=== PATIENT | female | born 1960 | race Caucasian/White ===

== ENCOUNTER 2019-04-21 17:15 | Emergency (ER) | payer BC ==
[2019-04-21 17:19] VITALS: RESP 18; TEMP 98.4
[2019-04-21] MEDS ORDERED: KETOROLAC 30 MG/ML 1 ML VIAL IVP STA (17:37)
[2019-04-21] MEDS ORDERED: SODIUM CHLORIDE 0.9% 1,000 ML IV STA (17:37)
[2019-04-21] MEDS ORDERED: MORPHINE SULFATE 4 MG/ML SYRINGE IVP STA (17:39)
[2019-04-21] MEDS ORDERED: ONDANSETRON 4 MG/2 ML VIAL IVP STA (18:03)
[2019-04-21 18:12] LABS: Basophils % (A) 0 %; Eosinophils # (A) 0.2 k/uL (0-0.7); Eosinophils % (A) 4 %; HGB 14.2 gm/dL (11.4-16.0); Lymphocytes # (A) 2.2 k/uL (1.0-4.8); Lymphocytes % (A) 35 %; MCH 31.5 pg (25.0-35.0); MCHC 32.2 g/dL (31.0-37.0); Mean Platelet Volume 7.5; Monocytes # (A) 0.3 k/uL (0-1.0); Monocytes % (A) 4 %; Neutrophils # (A) 3.5 k/uL (1.3-7.7); Neutrophils % (A) 55 %; Platelet Count 220 k/uL (150-450); RBC 4.49 m/uL (3.80-5.40); RDW 12.7 % (11.5-15.5); WBC 6.4 k/uL (3.8-10.6)
[2019-04-21 18:15] LABS: Appearance,Urine Clear (Clear); Bilirubin,Urine Negative (Negative); Blood,Urine Small (Negative); Color,Urine Light Yellow; Glucose,Urine (UA) Negative (Negative); Ketones,Urine Negative (Negative); Leukocyte Esterase,Urine Negative (Negative); Mucus,Urine Rare /hpf; Nitrite,Urine Negative (Negative); Protein,Urine Negative (Negative); RBC,Urine 3 /hpf (0-5); Specific Gravity,Urine 1.008 (1.001-1.035); Squamous Epithelial Cell,Urine 2 /hpf (0-4); Urobilinogen,Urine <2.0 mg/dL (<2.0); WBC,Urine <1 /hpf (0-5)
[2019-04-21 18:22] LABS: Albumin 4.3 g/dL (3.5-5.0); Calcium 9.2 mg/dL (8.4-10.2); Potassium 4.2 mmol/L (3.5-5.1); Total Bilirubin 0.4 mg/dL (0.2-1.3); Total Protein 6.7 g/dL (6.3-8.2)
[2019-04-21 18:28] LABS: Partial Thromboplastin Time 23.3 sec (22.0-30.0); Prothrombin Time 9.9 sec (9.0-12.0)
--- NOTE | 2019-04-21 18:51 | US ---
EXAMINATION TYPE: US gallbladder DATE OF EXAM: 04/21/2019 COMPARISON: NM, CT CLINICAL HISTORY: pain. EC patient with sever RUQ pain > 1 week; prior history of renal stones with l ithotripsy EXAM MEASUREMENTS: Liver Length: 15.0 cm Gallbladder Wall: 0.2 cm CBD: 0.2 cm Right Kidney: 9.4 x 5.4 x3.9 cm Pancreas: wnl Liver: wnl Gallbladder: no stones or sludge is seen; wall is wnl and patient stated ate beef and rice, nuts/cho colate with granola bar at 1300 today. Evidence for sonographic Arrington's sign: tender RUQ and epigastric area CBD: wnl Right Kidney: No hydronephrosis, hyperechoic parallel lines noted mid pole suggests calcified vessel mcpherson. IMPRESSION: No gallstones or dilated ducts. No free fluid.
--- NOTE | 2019-04-21 19:14 | ED ---
Abdominal Pain HPI - General Chief Complaint: Abdominal Pain Stated Complaint: gallbladder Time Seen by Provider: 04/21/19 17:22 Source: patient Mode of arrival: ambulatory Limitations: no limitations - History of Present Illness Initial Comments: Patient is a 59-year-old female presenting to the emergency department with complaints of right upper quadrant pain that has been increasing over the past week and a half. Patient states she had her gallbladder exam and with testing approximately 7-8 years ago and at that time her doctor wanted her to have her gallbladder removed. However she refused at that time. She has been asymptomatic since then. Patient states last week and a half she's noticed increased pain in the right upper quadrant along with some mild nausea. She states the pain has steadily been increasing and she can no longer take it. She denies fever, chills, vomiting, diarrhea. She does admit to hysterectomy, no other abdominal surgeries. She denies chest pain, shortness of breath. She has no other complaints at this time. Upon arrival to the ER her vital signs are stable. - Related Data Previous Rx's Medication Instructions Recorded Ketorolac [Toradol] 10 mg PO Q8HR #10 tab 04/21/19 Allergies Allergy/AdvReac Type Severity Reaction Status Date / Time bee pollen Allergy Anaphylaxis Verified 04/21/19 17:19 bee venom protein (honey bee) Allergy Anaphylaxis Verified 04/21/19 17:19 Review of Systems ROS Statement: Those systems with pertinent positive or pertinent negative responses have been documented in the HPI. ROS Other: All systems not noted in ROS Statement are negative. Past Medical History Past Medical History: Rheumatoid Arthritis (RA) History of Any Multi-Drug Resistant Organisms: None Reported Past Surgical History: Hysterectomy, Orthopedic Surgery Past Psychological History: No Psychological Hx Reported Smoking Status: Never smoker Past Alcohol Use History: Occasional Past Drug Use History: None Reported General Exam - General Exam Comments Initial Comments: GENERAL: Well-appearing, well-nourished and in no acute distress, but appears unco mfortable, holding her right side. HEAD: Atraumatic, normocephalic. EYES: Pupils equal round and reactive to light, extraocular movements intact, sclera anicteric, conjunctiva are normal. ENT: TMs normal, nares patent, oropharynx clear without exudates. Moist mucous membranes. NECK: Normal range of motion, supple without lymphadenopathy or JVD. LUNGS: Breath sounds clear to auscultation bilaterally and equal. No wheezes rales or rhonchi. HEART: Regular rate and rhythm without murmurs, rubs or gallops. ABDOMEN: Severe tenderness to palpation in the right upper quadrant and epigastric area. Soft, normoactive bowel sounds. No rebound. No masses appreciated. EXTREMITIES: Normal range of motion, no pitting or edema. No clubbing or cyanosis. NEUROLOGICAL: Normal speech, normal gait. PSYCH: Normal mood, normal affect. SKIN: Warm, Dry, normal turgor, no rashes or lesions noted. Limitations: no limitations Course Vital Signs 04/21/19 04/21/19 17:16 19:24 Temperature 98.4 F Pulse Rate 86 85 Respiratory 18 18 Rate Blood Pressure 156/91 160/87 O2 Sat by Pulse 98 98 Oximetry Medical Decision Making - Medical Decision Making Patient is 59-year-old female presenting with upper quadrant pain has been increasing over the past week and a half. Vitals are stable. Exam reveals severe right upper quadrant and epigastric tenderness. Lab work shows no acute abnormalities. Urine is normal, no signs of infection. Ultrasound shows no signs of a gallstone or dilated ducts. No free fluid. No signs of a right- sided kidney stone. Patient was given fluids as well as Toradol and reports improvement in her symptoms. I discussed with patient that even over workup is normal today, her symptoms are consistent with biliary colic. Patient will be given referral to surgery. Patient will also be given a small dose of Toradol for future colic events. She is in agreement with this plan of care. She is stable for discharge at this time. Return parameters were discussed with the patient she verbalized understanding. Case discussed with Dr. Abbott. - Lab Data Result diagrams: 04/21/19 18:01 04/21/19 18:01 Lab Results 04/21/19 04/21/19 04/21/19 Range/Units 18: 18: 18: WBC 6.4 (3.8-10.6) k/uL RBC 4.49 (3.80-5.40) m/uL Hgb 14.2 (11.4-16.0) gm/dL Hct 44.0 (34.0-46.0) % MCV 98.0 (80.0-100.0) fL MCH 31.5 (25.0-35.0) pg MCHC 32.2 (31.0-37.0) g/dL RDW 12.7 (11.5-15.5) % Plt Count 220 (150-450) k/uL Neutrophils % 55 % Lymphocytes % 35 % Monocytes % 4 % Eosinophils % 4 % Basophils % 0 % Neutrophils # 3.5 (1.3-7.7) k/uL Lymphocytes # 2.2 (1.0-4.8) k/uL Monocytes # 0.3 (0-1.0) k/uL Eosinophils # 0.2 (0-0.7) k/uL Basophils # 0.0 (0-0.2) k/uL PT (9.0-12.0) sec INR (<1.2) APTT (22.0-30.0) sec Sodium 139 (137-145) mmol/L Potassium 4.2 (3.5-5.1) mmol/L Chloride 109 H (98-107) mmol/L Carbon Dioxide 25 (22-30) mmol/L Anion Gap 5 mmol/L BUN 10 (7-17) mg/dL Creatinine 1.00 (0.52-1.04) mg/dL Est GFR (CKD-EPI)AfAm 71 (>60 ml/min/1.73 sqM) Est GFR (CKD-EPI)NonAf 61 (>60 ml/min/1.73 sqM) Glucose 93 (74-99) mg/dL Plasma Lactic Acid Louie 0.6 L (0.7-2.0) mmol/L Calcium 9.2 (8.4-10.2) mg/dL Total Bilirubin 0.4 (0.2-1.3) mg/dL AST 25 (14-36) U/L ALT 19 (4-34) U/L Alkaline Phosphatase 78 (38-126) U/L Total Protein 6.7 (6.3-8.2) g/dL Albumin 4.3 (3.5-5.0) g/dL Amylase 70 (30-110) U/L Lipase 139 (23-300) U/L Urine Color Urine Appearance (Clear) Urine pH (5.0-8.0) Ur Specific [place]rence (1.001-1.035) Urine Protein (Negative) Urine Glucose (UA) (Negative) Urine Ketones (Negative) Urine Blood (Negative) Urine Nitrite (Negative) Urine Bilirubin (Negative) Urine Urobilinogen (<2.0) mg/dL Ur Leukocyte Esterase (Negative) Urine RBC (0-5) /hpf Urine WBC (0-5) /hpf Ur Squamous Epith Cells (0-4) /hpf Urine Mucus (None) /hpf 04/21/19 04/21/19 Range/Units 18:01 18:01 WBC (3.8-10.6) k/uL RBC (3.80-5.40) m/uL Hgb (11.4-16.0) gm/dL Hct (34.0-46.0) % MCV (80.0-100.0) fL MCH (25.0-35.0) pg MCHC (31.0-37.0) g/dL RDW (11.5-15.5) % Plt Count (150-450) k/uL Neutrophils % % Lymphocytes % % Monocytes % % Eosinophils % % Basophils % % Neutrophils # (1.3-7.7) k/uL Lymphocytes # (1.0-4.8) k/uL Monocytes # (0-1.0) k/uL Eosinophils # (0-0.7) k/uL Basophils # (0-0.2) k/uL PT 9.9 (9.0-12.0) sec INR 1.0 (<1.2) APTT 23.3 (22.0-30.0) sec Sodium (137-145) mmol/L Potassium (3.5-5.1) mmol/L Chloride (98-107) mmol/L Carbon Dioxide (22-30) mmol/L Anion Gap mmol/L BUN (7-17) mg/dL Creatinine (0.52-1.04) mg/dL Est GFR (CKD-EPI)AfAm (>60 ml/min/1.73 sqM) Est GFR (CKD-EPI)NonAf (>60 ml/min/1.73 sqM) Glucose (74-99) mg/dL Plasma Lactic Acid Louie (0.7-2.0) mmol/L Calcium (8.4-10.2) mg/dL Total Bilirubin (0.2-1.3) mg/dL AST (14-36) U/L ALT (4-34) U/L Alkaline Phosphatase (38-126) U/L Total Protein (6.3-8.2) g/dL Albumin (3.5-5.0) g/dL Amylase (30-110) U/L Lipase (23-300) U/L Urine Color Light Yellow Urine Appearance Clear (Clear) Urine pH 7.0 (5.0-8.0) Ur Specific [place] 1.008 (1.001-1.035) Urine Protein Negative (Negative) Urine Glucose (UA) Negative (Negative) Urine Ketones Negative (Negative) Urine Blood Small H (Negative) Urine Nitrite Negative (Negative) Urine Bilirubin Negative (Negative) Urine Urobilinogen <2.0 (<2.0) mg/dL Ur Leukocyte Esterase Negative (Negative) Urine RBC 3 (0-5) /hpf Urine WBC <1 (0-5) /hpf Ur Squamous Epith Cells 2 (0-4) /hpf Urine Mucus Rare H (None) /hpf Disposition Clinical Impression: Biliary colic, Right upper quadrant pain Disposition: HOME SELF-CARE Condition: Stable Instructions (If sedation given, give patient instructions): Biliary Colic (ED) Additional Instructions: Please return to the Emergency Department if symptoms worsen or any other concerns. Be cautious of the foods that trigger gallbladder attacks. Follow-up with surgeon as discussed. Prescriptions: Ketorolac [Toradol] 10 mg PO Q8HR #10 tab Is patient prescribed a controlled substance at d/c from ED?: No Referrals: Quinten Groves DO [Primary Care Provider] - 1-2 days Everett Lama DO [Doctor of Osteopathic Medicine] - 1-2 days
[2019-04-21 19:26] VITALS: BP 160/87; PULSE 85
== END 2019-04-21 19:26 | disposition home or self-care (01) ==
LOC: EC 17:15
DX: K80.50 Calculus of bile duct without cholangitis or cholecystitis without obstruction (principal); Z91.030 Bee allergy status; Z90.710 Acquired absence of both cervix and uterus
CPT/HCPCS: 36415; 80053; 82150; 83605; 83690; 85025; 85610; 85730; 81001; 76705; 99284; 96374; 96375; 96361; J2405; J1885

== ENCOUNTER 2019-11-05 09:41 | Day surgery (SDC) | payer BC ==
[2019-10-31 11:55] VITALS: BMI 22.4
[~2019-11-05 09:41] MED LIST: LACTATED RINGERS 1,000 ML IV SCH; LIDOCAINE 1% (10MG/ML) FOR IV START INTRADERMA PRN
[2019-11-05 10:06] VITALS: RESP 16; TEMP 96.9
[2019-11-05] MEDS ORDERED: MIDAZOLAM 2 MG/2 ML VIAL ONE (10:18)
[2019-11-05] MEDS ORDERED: fentaNYL (PF) 50 MCG/ML 2 ML AMP ONE (10:18)
[2019-11-05] MEDS ORDERED: PROPOFOL 10 MG/ML 20 ML VIAL IV ONE (10:18)
--- NOTE | 2019-11-05 10:26 | P.GSHP ---
History of Present Illness H&P Date: 11/05/19 Chief Complaint: Rectal bleeding Patient here today for colonoscopy. Last colonoscopy 8 years ago. Patient with recent rectal bleeding. Patient has had some right upper quadrant pain. Past Medical History Past Medical History: Cancer, Osteoarthritis (OA), Rheumatoid Arthritis (RA) Additional Past Medical History / Comment(s): migraines, hx ulcers, hemorrhoids, polyp in esophagus and small intestine on previous edg,colonoscopy, hx cervical cancer, hx kidney stones History of Any Multi-Drug Resistant Organisms: None Reported Past Surgical History: Hysterectomy, Orthopedic Surgery, Tonsillectomy Additional Past Surgical History / Comment(s): leia foot bunionectomy, tendon replaced in left index finger, carpal tunnle leia wrists, medial branch injections for migraines Past Anesthesia/Blood Transfusion Reactions: No Reported Reaction Smoking Status: Current every day smoker - Past Family History Mother Family Medical History: Cancer Sister(s) Family Medical History: Cancer Medications and Allergies Home Medications Medication Instructions Recorded Confirmed Type ALPRAZolam [Xanax] 0.5 mg PO 2000 PRN 10/31/19 11/05/19 History Hydrocodone/Acetaminophen [[place] 1 tab PO TID PRN 10/31/19 11/05/19 History 7.5-325] Mirtazapine [Remeron] 30 mg PO HS PRN 10/31/19 11/05/19 History Montelukast Sodium [Singulair] 10 mg PO 1700 10/31/19 11/05/19 History Omeprazole [PriLOSEC] 20 mg PO 1700 10/31/19 11/05/19 History Allergies Allergy/AdvReac Type Severity Reaction Status Date / Time bee pollen Allergy Anaphylaxis Verified 11/05/19 10:01 bee venom protein (honey bee) Allergy Anaphylaxis Verified 11/05/19 10:01 Surgical - Exam Vital Signs Temp Pulse Resp BP Pulse Ox 96.9 F L 84 16 129/66 98 11/05/19 10:04 11/05/19 10:04 11/05/19 10:04 11/05/19 10:04 11/05/19 10:04 Physical exam: General: Well-developed, well-nourished HEENT: Normocephalic, sclerae nonicteric Abdomen: Nontender, nondistended Extremities: No edema Neuro: Alert and oriented Assessment and Plan (1) Rectal bleeding Narrative/Plan: Will proceed with colonoscopy Current Visit: Yes Status: Acute Code(s): K62.5 - HEMORRHAGE OF ANUS AND RECTUM SNOMED Code(s): 77370829
--- NOTE | 2019-11-05 10:45 | P.PCN ---
Date of Procedure: 11/05/19 Procedure(s) Performed: PREOPERATIVE DIAGNOSIS: Rectal bleeding POSTOPERATIVE DIAGNOSIS: Diverticulosis, transverse colon polyp PROCEDURE: Colonoscopy with snare polypectomy ANESTHESIA: MAC SURGEON: Km Thompson M.D. SPECIMENS: Transverse colon polyp ENDOSCOPIC PROCEDURE: The patient was placed on the endoscopy table in the left decubitus position. The Olympus colonoscope was inserted into the anus and passed under direct visualization to the base of the cecum. The appendiceal orifice was visualized. From that point the scope was slowly withdrawn inspecting all surfaces carefully. There were no neoplastic inflammatory or polypoid lesions throughout the cecum and ascending colon. In the transverse colon a small polyp was identified and removed using the snare with cautery technique. The remainder of the transverse descending sigmoid and rectum appeared normal. There was some retained stool in the sigmoid and rectum. There was mild left-sided diverticulosis noted. Digital rectal examination was normal. The patient was taken to the recovery room in stable condition per anesthesia guidelines. RECOMMENDATIONS: Increase fiber. Follow-up colonoscopy 5 years.
[2019-11-05 11:05] VITALS: BP 105/68; PULSE 75
== END 2019-11-05 11:46 | disposition home or self-care (01) ==
LOC: ORWHC2ENDO 09:41
PROVIDERS: ATTEND Surgery
DX: K63.5 Polyp of colon (principal); K57.30 Diverticulosis of large intestine without perforation or abscess without bleeding; K62.5 Hemorrhage of anus and rectum; M19.90 Unspecified osteoarthritis, unspecified site; M06.9 Rheumatoid arthritis, unspecified; Z85.41 Personal history of malignant neoplasm of cervix uteri; G43.909 Migraine, unspecified, not intractable, without status migrainosus; K64.9 Unspecified hemorrhoids; Z87.442 Personal history of urinary calculi; Z90.710 Acquired absence of both cervix and uterus; Z98.890 Other specified postprocedural states; F17.200 Nicotine dependence, unspecified, uncomplicated; Z80.9 Family history of malignant neoplasm, unspecified; Z79.899 Other long term (current) drug therapy; Z91.030 Bee allergy status
CPT/HCPCS: 88305; 45385; J2250; J3010; J2704

== ENCOUNTER → 2019-11-08 | Outpatient (CLI) | payer BC ==
--- NOTE | 2019-11-08 09:16 | NM ---
EXAMINATION TYPE: NM hepatobiliary w CCK DATE OF EXAM: 11/08/2019 COMPARISON: Ultrasound gallbladder 04/21/2019 HISTORY: Right upper quadrant pain TECHNIQUE: After the intravenous administration of 4.25 mCi Tc 99m Mebrofenin hepatobiliary scintigra phy is performed. Immediate images post injection. FINDINGS: There is satisfactory initial accumulation of tracer by the liver. The gallbladder is visualized wit hin 10 minutes. The small bowel activity is noted within 12 minutes. At one hour CCK was administer ed, patient was injected with 1.2 mcg of Kinevac, and gallbladder ejection fraction is calculated at 71 %, in the normal range. Therefore there is no scintigraphic evidence of cystic or common bile elenita t obstruction to suggest acute cholecystitis or gallbladder dyskinesia. IMPRESSION: Exam is within normal limits.
== END | disposition home or self-care (01) ==
LOC: RADNMMAIN 06:44
PROVIDERS: ATTEND Surgery
DX: R10.11 Right upper quadrant pain (principal)
CPT/HCPCS: 78227; A9537; J2805

== ENCOUNTER → 2019-11-25 | Outpatient (CLI) | payer BC ==
--- NOTE | 2019-11-26 07:46 | CT ---
EXAMINATION TYPE: CT abdomen pelvis w con DATE OF EXAM: 11/25/2019 HISTORY: RUQ pain, ongoing issue for patient CT DLP: 839mGycm Automated Exposure Control for Dose Reduction was Utilized. CONTRAST: CT scan of the abdomen and pelvis is performed with IV Contrast, patient injected with 100 mL of Isov ue 300. COMPARISON: Gallbladder ultrasound April 21, 2019 FINDINGS: LUNG BASES: No significant abnormality is appreciated. LIVER/GB: Gallbladder shows no CT dense intraluminal gallstones or surrounding inflammatory change. PANCREAS: No significant abnormality is seen. SPLEEN: No significant abnormality is seen. ADRENALS: No significant abnormality is seen. KIDNEYS: Symmetric cortical medullary uptake and excretion without hydronephrosis seen bilaterally. S cattered bilateral pelvic phleboliths. BOWEL: Oral contrast reaches level of the proximal left colon. No suspicious small or large bowel dil atation. Moderate diverticula in the proximal to mid sigmoid colon of the left pelvis. No CT evidence for acute diverticulitis. Normal contrast-filled appendix ascends from cecum just below right liver margin. UTERUS/ADNEXA: Uterus is surgically absent or markedly atrophic. LYMPH NODES: No greater than 1cm abdominal or pelvic lymph nodes are appreciated. OSSEOUS STRUCTURES: Slight scoliotic curvature. Bilateral pars defect L5 level with grade 1 anterolis thesis L5 on S1. Moderate to severe disc space narrowing with endplate sclerosis and vacuum disc phen omenon at this level. Mild to moderate disc space narrowing L4-L5 level. OTHER: Mild/moderate calcified plaque of the abdominal aorta extends into iliac branch vessels IMPRESSION: No significant new or acute finding is seen to account for patient's clinical symptoms of right upper quadrant pain.
== END | disposition home or self-care (01) ==
LOC: RADCTMAIN 14:35
PROVIDERS: ATTEND Surgery
DX: R10.11 Right upper quadrant pain (principal)
CPT/HCPCS: 74177; Q9967

== ENCOUNTER → 2021-11-11 | Outpatient (CLI) | payer BC ==
--- NOTE | 2021-11-11 10:33 | NM ---
EXAMINATION TYPE: NM hepatobiliary w CCK DATE OF EXAM: 11/11/2021 COMPARISON: CT abdomen and pelvis report report November 25, 2019. Prior HIDA scan November 07 0 HISTORY: Disease of gallbladder. Epigastric pain TECHNIQUE: After the intravenous administration of 4.1 mCi Tc 99m Mebrofenin hepatobiliary scintigrap hy is performed. Immediate images post injection. FINDINGS: There is satisfactory initial accumulation of tracer by the liver. The gallbladder is visualized wit hin 20 minutes. The small bowel activity is noted within 50 minutes. At one hour CCK was administer ed, patient was injected with 1.18 mcg of Kinevac, and gallbladder ejection fraction is calculated at 88 %, not diminished from the normal range. Therefore there is no scintigraphic evidence of cystic or common bile duct obstruction to suggest acute cholecystitis. IMPRESSION: Gallbladder ejection fraction 88%, some concern this abnormal or a hyperkinetic response.
== END | disposition home or self-care (01) ==
LOC: RADNMMAIN 06:42
PROVIDERS: ATTEND Surgery
DX: K82.8 Other specified diseases of gallbladder (principal)
CPT/HCPCS: 78227; A9537; J2805

== ENCOUNTER 2021-11-23 07:07 | Day surgery (SDC) | payer BC ==
[2021-11-19 12:37] VITALS: BMI 22.6
[~2021-11-23 07:07] MED LIST changes: +ACETAMINOPHEN TAB 500 MG TAB PO PRN; +DEXAMETHASONE SOD PHOSPHATE 4 MG/ML 1 ML VIAL IV ONE; +HEPARIN SODIUM,PORCINE/PF 5,000 UNIT/0.5 ML SYRINGE SQ PRN; +HYDROmorphone 0.5 MG/0.5 ML SYRINGE IVP PRN; -LIDOCAINE 1% (10MG/ML) FOR IV START INTRADERMA PRN; +ONDANSETRON 4 MG/2 ML VIAL IVP ONE
[2021-11-23] MEDS ORDERED: BUPIVACAINE (PF) 0.25% 30 ML VIAL SQ ONE ×2 (08:27→09:20)
--- NOTE | 2021-11-23 08:39 | P.GSHP ---
History of Present Illness H&P Date: 11/23/21 Chief Complaint: Right upper quadrant pain This 61-year-old female who presents today for laparoscopic cholestatic. Patient's neck was prepped quadrant pain. Her recent HIDA scan showed abnormal ejection fraction consistent with chronic cholecystitis. Past Medical History Past Medical History: Cancer, Osteoarthritis (OA), Rheumatoid Arthritis (RA) Additional Past Medical History / Comment(s): Migraines, hx ulcers, hemorrhoids, polyp in esophagus and small intestine on previous EGD, colonoscopy, hx cervical cancer, hx kidney stones, RECTAL BLEEDING, diverticultitis and twisted colon, chronic back pain. History of Any Multi-Drug Resistant Organisms: None Reported Past Surgical History: Hysterectomy, Orthopedic Surgery, Tonsillectomy Additional Past Surgical History / Comment(s): Bilateral foot bunionectomy, tendon replaced in left index finger, carpal tunnel bilateral wrists, medial branch injections for migraines, colonoscopies, EGD. Past Anesthesia/Blood Transfusion Reactions: No Reported Reaction Past Psychological History: No Psychological Hx Reported Smoking Status: Current every day smoker Past Alcohol Use History: Occasional Additional Past Alcohol Use History / Comment(s): Smokes <1 PPD, has smoked for 40 yrs. Past Drug Use History: None Reported - Past Family History Mother Family Medical History: No Reported History Sister(s) Family Medical History: Cancer Medications and Allergies Home Medications Medication Instructions Recorded Confirmed Type ALPRAZolam [Xanax] 0.5 - 1 mg PO 1999 PRN 10/31/19 11/19/21 History Montelukast [Singulair] 10 mg PO DAILY PRN 10/18/21 11/19/21 History Fluticasone Nasal [place] [Flonase 1 spray EA NOSTRIL HS PRN 11/19/21 11/19/21 History Nasal [place]] Fluticasone Nasal [place] [Flonase 1 spray EA NOSTRIL QAM 11/19/21 11/19/21 History Nasal [place]] HYDROcodone/APAP 10-325MG [[place] 1 tab PO DIRECTED PRN 11/19/21 11/19/21 History 10-325] Allergies Allergy/AdvReac Type Severity Reaction Status Date / Time bee pollen Allergy Anaphylaxis Verified 11/23/21 07:22 bee venom protein (honey bee) Allergy Anaphylaxis Verified 11/23/21 07:22 Surgical - Exam Vital Signs Temp Pulse Resp BP Pulse Ox 98.3 F 75 16 137/63 98 11/23/21 07:27 11/23/21 07:27 11/23/21 07:27 11/23/21 07:27 11/23/21 07:27 - General well developed, well nourished, no distress - Eyes PERRL, normal ocular movement - ENT normal pinna - Neck no masses - Respiratory normal expansion - Cardiovascular Rhythm: regular - Abdomen Abdomen: soft, non tender Assessment and Plan Assessment: Chronic cholecystitis. We'll perform laparoscopic cholecystectomy.
[2021-11-23] MEDS ORDERED: fentaNYL (PF) 50 MCG/ML 2 ML AMP ONE (08:54)
[2021-11-23] MEDS ORDERED: ROCURONIUM 10 MG/ML (5 ML VIAL) IV ONE (08:54)
[2021-11-23] MEDS ORDERED: LIDOCAINE 2% INJ 20 MG/ML (2 ML VIAL) ONE (08:54)
[2021-11-23] MEDS ORDERED: PROPOFOL 10 MG/ML 20 ML VIAL IV ONE (08:54)
[2021-11-23] MEDS ORDERED: SUCCINYLCHOLINE CHLORIDE 200 MG/10 ML VIAL IV ONE (08:54)
[2021-11-23] MEDS ORDERED: KETOROLAC 15 MG/ML 1 ML VIAL ONE (08:54)
[2021-11-23] MEDS ORDERED: HYDROmorphone (PF) 1 MG/ML ONE (08:54)
[2021-11-23] MEDS ORDERED: NEOSTIGMINE 1 MG/ML 10 ML VIAL ONE (08:54)
[2021-11-23] MEDS ORDERED: GLYCOPYRROLATE 0.2 MG/ML 2 ML VIAL ONE (08:54)
[2021-11-23] MEDS ORDERED: MIDAZOLAM 2 MG/2 ML VIAL ONE (08:54)
--- NOTE | 2021-11-23 09:40 | P.OP ---
Date of Procedure: 11/23/21 Preoperative Diagnosis: Cholecystitis Postoperative Diagnosis: Cholecystitis Procedure(s) Performed: Laparoscopic cholecystectomy Anesthesia: AMRIT Surgeon: Flash Vasquez Estimated Blood Loss (ml): 5 Pathology: other (Gallbladder) Condition: stable Disposition: PACU Description of Procedure: The patient was placed on the operating table. The patient received a general endotracheal tube anesthesia. The patients abdomen was prepped and draped in the usual sterile fashion. Through an infraumbilical stab incision, the fascia of the anterior abdominal wall was grasped with a pair of Kochers and then the Veress needle was placed in the peritoneal cavity. Position of the Veress needle was confirmed with positive drop test. The abdomen was then insufflated. After adequate insufflation, the 10 mm trocar was placed in the peritoneal cavity. Following this the laparoscope was placed in the peritoneal cavity. The patient was placed in the head-up, right side up position and then a 5 mm trocar was placed in the right lateral and right subcostal position under direct visualization. A 8 mm trocar was placed in the epigastric position. The gallbladder was grasped in the fundus and infundibulum. Traction on the gallbladder was placed in the lateral and the cephalad positions. The triangle of Calot was visualized.. The cystic duct was bluntly dissected until the union of the cystic duct and common bile duct was seen. A critical view of safety was achieved. The cystic duct was then divided and sealed with the Harmonic scissors. A PDS Endoloop was then placed throughout the cystic duct stump. The cystic artery divided and sealed with the Harmonic scissors. The gallbladder was then removed from the liver bed using Harmonic scissors. The gallbladder was then extracted through the epigastric port site. Operative field was checked for any bleeding spots and Harmonic scissors was used to coagulate the liver bed. The abdomen was irrigated. The trocars were removed. The skin was closed using interrupted 3-0 Vicryl suture. Dermabond dressing were applied. The patient tolerated the procedure well.
[2021-11-23 09:49] VITALS: TEMP 97
[2021-11-23] MEDS ORDERED: LACTATED RINGERS 1,000 ML IV ONE (10:07)
[2021-11-23 11:36] VITALS: RESP 16
[2021-11-23 12:05] VITALS: BP 126/65; PULSE 58
== END 2021-11-23 12:00 | disposition home or self-care (01) ==
LOC: OR 07:07
PROVIDERS: ATTEND Surgery
DX: K80.10 Calculus of gallbladder with chronic cholecystitis without obstruction (principal); M06.9 Rheumatoid arthritis, unspecified; G43.909 Migraine, unspecified, not intractable, without status migrainosus; K64.9 Unspecified hemorrhoids; K62.5 Hemorrhage of anus and rectum; K56.2 Volvulus; K22.81 Esophageal polyp; F41.9 Anxiety disorder, unspecified; F17.210 Nicotine dependence, cigarettes, uncomplicated; K57.32 Diverticulitis of large intestine without perforation or abscess without bleeding; Z87.442 Personal history of urinary calculi; Z90.710 Acquired absence of both cervix and uterus; Z90.89 Acquired absence of other organs; Z98.890 Other specified postprocedural states; Z89.432 Acquired absence of left foot; Z89.431 Acquired absence of right foot; Z86.59 Personal history of other mental and behavioral disorders; Z80.9 Family history of malignant neoplasm, unspecified; Z79.899 Other long term (current) drug therapy; Z79.02 Long term (current) use of antithrombotics/antiplatelets; Z79.52 Long term (current) use of systemic steroids; Z87.19 Personal history of other diseases of the digestive system
CPT/HCPCS: 47562; 88304; J2250; J0330; J1100; J2710; J0690; J2405; J3010; J1170 ×2; J1885; J2704; J1644; J2001

== ENCOUNTER → 2021-12-16 | Outpatient (CLI) | payer BC ==
[2021-12-16 23:22] LABS: Anion Gap 11.5 mmol/L (10.00-18.00); Potassium 4.3 mmol/L (3.5-5.5)
[2021-12-16 23:38] LABS: Basophils # (A) 0.04 X 10*3/uL (0.00-0.10); Basophils % (A) 0.6 %; Eosinophils # (A) 0.08 X 10*3/uL (0.04-0.35); Eosinophils % (A) 1.1 %; HCT 43.1 % (37.2-46.3); HGB 14.1 g/dL (12.0-15.0); Immature Grans, Automated 0.3 %; Lymphocytes # (A) 2.35 X 10*3/uL (0.90-5.00); MCH 31.9 pg (27.0-32.0); MCHC 32.7 g/dL (32.0-37.0); MCV 97.5 fL (80.0-97.0); Mean Platelet Volume 9.8 fL (9.5-12.2); NRBC Per 100 WBC 0 /100 WBCS (0.0-0.0); Neutrophils # (A) 4.14 X 10*3/uL (1.80-7.70); Platelet Count 257 X 10*3/uL (140-440); RBC 4.42 X 10*6/uL (4.10-5.20); RDW 12.6 % (11.5-14.5); WBC 7.13 X 10*3/uL (4.50-10.00)
== END | disposition home or self-care (01) ==
LOC: LABWHC1 16:06
PROVIDERS: ATTEND Surgery
DX: Z01.812 Encounter for preprocedural laboratory examination (principal); K57.32 Diverticulitis of large intestine without perforation or abscess without bleeding
CPT/HCPCS: 36415; 80051; 85025; 86850; 86900; 86901; 93005

== ENCOUNTER 2021-12-28 07:55 | Inpatient (IN) | payer BC ==
[2021-12-23 15:21] VITALS: BMI 23.0
[~2021-12-28 07:55] MED LIST changes: -LACTATED RINGERS 1,000 ML IV SCH; +metroNIDAZOLE-NS PMX 500 MG in SALINE 1 100ML.BAG IVPB PRN
[2021-12-28] MEDS: LACTATED RINGERS 1,000 ML IV SCH (08:44)
[2021-12-28] MEDS ORDERED: ALVIMOPAN 12 MG CAPSULE PO ONE ×2 (08:49→08:50)
[2021-12-28] MEDS ORDERED: MIDAZOLAM 2 MG/2 ML VIAL IVP ONE (09:08)
[2021-12-28] MEDS ORDERED: NALOXONE 0.4 MG/ML 1 ML VIAL IV PRN (09:37)
--- NOTE | 2021-12-28 09:39 | P.ANPRN ---
Procedure Note - Anesthesia - Epidural/Spinal Epidural Continuous Time Out Performed: Yes Date of Procedure: 12/28/21 Procedure Start Time: : Procedure Stop Time: : Location of Patient: PreOp Indication: Acute Post-Operative Pain Sedation Type: Sedate with meaningful contact maintained Preparation: Sterile Dressing Position: Sitting Catheter: Indwelling Needle Guage: 18 Injectate: Test Dose Lidocaine1.5% w/1:200,000 epi Blood Aspirated: No Pain Paresthesia on Injection Noted: No Events: Uneventful and Well Tolerated
--- NOTE | 2021-12-28 09:45 | P.GSHP ---
History of Present Illness H&P Date: 12/28/21 Chief Complaint: Diverticulitis This a 61-year-old female who's had chronic issues with diverticulitis. Patient's significant pain in the left lower quadrant. Patient presents today for low anterior section. She is aware the risks of surgery including possible colostomy, bleeding wound infection. Past Medical History Past Medical History: Cancer, Osteoarthritis (OA), Rheumatoid Arthritis (RA) Additional Past Medical History / Comment(s): Migraines, hx ulcers, hemorrhoids, polyp in esophagus and small intestine on previous EGD, colonoscopy, hx cervical cancer, hx kidney stones, RECTAL BLEEDING, diverticultitis and twisted colon, chronic back pain. History of Any Multi-Drug Resistant Organisms: None Reported Past Surgical History: Cholecystectomy, Hysterectomy, Orthopedic Surgery, Tonsillectomy Additional Past Surgical History / Comment(s): Bilateral foot bunionectomy, tendon replaced in left index finger, carpal tunnel bilateral wrists, medial branch injections for migraines, colonoscopies, EGD. Past Anesthesia/Blood Transfusion Reactions: No Reported Reaction Smoking Status: Current every day smoker - Past Family History Mother Family Medical History: No Reported History Sister(s) Family Medical History: Cancer Medications and Allergies Home Medications Medication Instructions Recorded Confirmed Type ALPRAZolam [Xanax] 0.5 - 1 mg PO 1999 PRN 10/31/19 12/28/21 History Montelukast [Singulair] 10 mg PO DAILY 10/18/21 12/28/21 History Mirtazapine [Remeron] 30 mg PO HS 12/23/21 12/28/21 History Allergies Allergy/AdvReac Type Severity Reaction Status Date / Time bee pollen Allergy Anaphylaxis Verified 12/28/21 08:14 bee venom protein (honey bee) Allergy Anaphylaxis Verified 12/28/21 08:14 Surgical - Exam Vital Signs Temp Pulse Resp BP Pulse Ox 98.2 F 86 16 128/61 98 12/28/21 08:13 12/28/21 08:13 12/28/21 08:13 12/28/21 08:13 12/28/21 08:13 - General well developed, well nourished, no distress - Eyes PERRL - ENT normal pinna, normal nares - Neck no masses - Respiratory normal expansion - Cardiovascular Rhythm: regular - Abdomen Abdomen: soft, non tender Assessment and Plan Assessment: Diverticulitis. We'll perform a low anterior resection
[2021-12-28] MEDS ORDERED: NEOSTIGMINE 1 MG/ML 10 ML VIAL ONE (09:47)
[2021-12-28] MEDS ORDERED: ROCURONIUM 10 MG/ML (5 ML VIAL) IV ONE (09:47)
[2021-12-28] MEDS ORDERED: GLUCAGON 1 MG/ML VIAL ONE (09:47)
[2021-12-28] MEDS ORDERED: PHENYLEPHRINE-0.9% NACL SYG 1,000 MCG/10 ML SYRINGE ONE (09:47)
[2021-12-28] MEDS ORDERED: LIDOCAINE 2% INJ 20 MG/ML (2 ML VIAL) ONE (09:47)
[2021-12-28] MEDS ORDERED: fentaNYL (PF) 50 MCG/ML 2 ML AMP ONE (09:47)
[2021-12-28] MEDS ORDERED: HEPARIN SODIUM,PORCINE 5,000 UNIT/ML 1 ML VIAL ONE (09:47)
[2021-12-28] MEDS ORDERED: SUCCINYLCHOLINE CHLORIDE 200 MG/10 ML VIAL IV ONE (09:47)
[2021-12-28] MEDS ORDERED: GLYCOPYRROLATE 0.2 MG/ML 2 ML VIAL ONE (09:47)
[2021-12-28] MEDS ORDERED: PROPOFOL 10 MG/ML 20 ML VIAL IV ONE (09:47)
[2021-12-28] MEDS ORDERED: LACTATED RINGERS 1,000 ML IV ONE (10:20)
[2021-12-28] MEDS ORDERED: BENZOCAINE/MENTHOL LOZENG 1 EACH LOZENGE MUCOUS MEM PRN (11:11)
[2021-12-28] MEDS ORDERED: METOCLOPRAMIDE 5 MG/ML 2 ML VIAL IVP PRN (11:11)
[2021-12-28] MEDS ORDERED: ONDANSETRON 4 MG/2 ML VIAL IVP PRN (11:11)
--- NOTE | 2021-12-28 11:11 | P.OP ---
Date of Procedure: 12/28/21 Preoperative Diagnosis: Diverticulitis Postoperative Diagnosis: Diverticulitis Procedure(s) Performed: Low anterior resection Anesthesia: AMRIT Surgeon: Flash Vasquez Estimated Blood Loss (ml): 50 Pathology: other (Sigmoid colon) Condition: stable Disposition: PACU Description of Procedure: DESCRIPTION OF PROCEDURE: The patient was placed on the operating table in the supine position. Patient received a general anesthesia. Patient was then placed in the dorsal lithotomy position. The patients abdomen was prepped and draped in the usual sterile fashion. Through a low midline incision, the abdomen was entered. The Ramirez wound protector was used. The Bookwalter retractor was placed in the wound. The stomach appeared normal. The small bowel appeared normal. The liver appeared normal. The right colon and transverse colon appeared normal. On the left colon, there was an extensive diverticulosis noted. The sigmoid colon was then mobilized by dividing the white line of Toldt with electrocautery. At this point, the proximal sigmoid colon was transected with a GI stapler after a window had been made in the mesentery. The distal sigmoid colon was then dissected. Mesentery was taken down with the Enseal device. The rectum was then transected with the contour stapler. Next, a enterotomy is made in the proximal colon. The anvil for the EEA stapler was placed into the colon. The colon was then transected with the PRADIP stapler. And then the anvil spike was driven through the staple line. Using the Enseal device the mesentery the bowel was divided and the specimen sent to pathology. The EEA stapler device was then placed in the patient'ss anus and passed into the rectum. The nail for the EEA was then brought out through the distal rectum and then attached to the anvil. The EEA stapler device was then fired. The anastomosis was inspected. There were 2 good donuts of tissue removed from the EEA stapler. The anastomosis was then tested under water and there was no air leak seen. At this point the abdomen was then irrigated. There was no bleeding seen. The patient had a pelvic appendix. His HIDA perform an incidental appendectomy. The mesentery of the appendix was divided with the Enseal device. And then using the GI stapler Was performed. The omentum was visualized. There appeared to be nonviable portion of omentum. This was decided with the Enseal device. This was sent to pathology. The fascia was closed clean instruments. The fascia was then closed with double stranded #1 PDS. The skin was closed with ahsan. The patient tolerated the procedure well.
[2021-12-28] MEDS: ROPIVACAINE 400 MG, HYDROMORPHONE (PF) 5 MG in SODIUM CHLORIDE 0.9% 170 ML EPIDURAL PRN ×2 (11:27→14:14)
[2021-12-28] MEDS: D5-0.45% NACL WITH KCL 20MEQ/L 1,000 ML IV SCH ×2 (15:58→22:10)
[2021-12-28] MEDS: HEPARIN SODIUM,PORCINE/PF 5,000 UNIT/0.5 ML SYRINGE SQ SCH (16:55)
[2021-12-28] MEDS: ALPRAZolam 0.5 MG TAB PO PRN (22:09)
[2021-12-28] MEDS: MIRTAZAPINE 15 MG TAB PO SCH (22:09)
[2021-12-28] MEDS: FAMOTIDINE 20 MG/2 ML VIAL IV SCH (22:10)
[2021-12-29] MEDS: HEPARIN SODIUM,PORCINE/PF 5,000 UNIT/0.5 ML SYRINGE SQ SCH ×3 (00:29→17:02)
[2021-12-29] MEDS: LACTATED RINGERS 1,000 ML IV SCH (06:45)
[2021-12-29] MEDS: D5-0.45% NACL WITH KCL 20MEQ/L 1,000 ML IV SCH ×3 (06:45→23:31)
--- NOTE | 2021-12-29 07:24 | P.PN ---
Progress Note - Text Progress Note Date: 12/29/21 Postoperative day #1 status post low anterior resection ,epidural catheter placed for postoperative analgesia, patient doing well epidural site okay, patient currently on combination of epidural infusion solution of Ropivacaine 0.0625% and Dilaudid 20 g per mL the infusion rate at 6 ml per hour , patient had no motor deficit epidural site okay , vital signs stable ,VAS 3 /10 , Assessment and plan= post operative day #1 patient doing well ,pain well controlled , there is no anesthesia related complications
[2021-12-29] MEDS: FAMOTIDINE 20 MG/2 ML VIAL IV SCH ×2 (08:10→20:33)
[2021-12-29] MEDS: ALVIMOPAN 12 MG CAPSULE PO SCH ×2 (09:35→20:33)
[2021-12-29] MEDS: MONTELUKAST 10 MG TAB PO SCH (09:35)
--- NOTE | 2021-12-29 12:29 | P.CONS ---
History of Present Illness - Reason for Consult Consult date: 12/29/21 Medical management Requesting physician: Flash Vasquez - Chief Complaint Abdominal surgery - History of Present Illness This is a pleasant 61-year-old patient, follows with Dr. Arrieta. Chronic stable medical conditions include osteoarthritis, migraines, hemorrhoids, chronic low back pain. Patient has undergone low anterior resection for diverticulitis. Postprocedure patient on clear liquid diet. Some abdominal pain. No nausea vomiting. No fever no chills. 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 . Smoked for about 50 years stopped about 3 days ago. Does drink alcohol on weekends. Family history: Reviewed, noncontributory to presentation Physical examination: VITAL SIGNS: 98.3, 91, 17, 1 43 x 73, 96% on 2 L GENERAL: BMI 23.4, laying in bed, awake. EYES: Pupils equal. Conjunctiva normal. HEENT: External appearance of nose and ears normal, oral cavity grossly normal. NECK: JVD not raised; masses not palpable. HEART: First and second heart sounds are normal; no edema. LUNGS: Respiratory rate normal; clear to auscultation. ABDOMEN: Soft, mild tenderness dressing in place, no guarding rigidity, liver spleen not palpable, no masses palpable. PSYCH: Alert and oriented x3; mood and affect normal. MUSCULOSKELETAL:No Clubbing/cyanosis;muscles-grossly intact, evidence of OA NEUROLOGICAL: Cranial nerves grossly intact; no facial asymmetry, power and sensation grossly intact. LYMPHATICS: No lymph nodes palpable in the axilla and neck INVESTIGATIONS, reviewed in the clinical context: [Labs from 12/24/2021] WBC 7.1 hemoglobin 14.1 platelets 257 potassium 4.3 Assessment and plan: -Low anterior resection, with removal of sigmoid colon for diverticulitis Clear liquid diet. Pain control. -COPD in a smoker. Patient has stopped smoking 3 days ago. Has declined a nicotine patch. Feels she'll do fine. Singulair -Chronic insomnia Remeron -Anxiety not otherwise specified Xanax when necessary Activity as per surgery. Pain control in place. Clear liquid diet. Resume home medications. Care was discussed with the patient. Questions answered. Thank you Dr. Vasquez Past Medical History Past Medical History: Cancer, Osteoarthritis (OA), Rheumatoid Arthritis (RA) Additional Past Medical History / Comment(s): Migraines, hx ulcers, hemorrhoids, polyp in esophagus and small intestine on previous EGD, colonoscopy, hx cervical cancer, hx kidney stones, RECTAL BLEEDING, diverticultitis and twisted colon, chronic back pain. History of Any Multi-Drug Resistant Organisms: None Reported Past Surgical History: Cholecystectomy, Hysterectomy, Orthopedic Surgery, Tonsillectomy Additional Past Surgical History / Comment(s): Bilateral foot bunionectomy, tendon replaced in left index finger, carpal tunnel bilateral wrists, medial branch injections for migraines, colonoscopies, EGD. Past Anesthesia/Blood Transfusion Reactions: No Reported Reaction Smoking Status: Current every day smoker - Past Family History Mother Family Medical History: No Reported History Sister(s) Family Medical History: Cancer Medications and Allergies Home Medications Medication Instructions Recorded Confirmed Type ALPRAZolam [Xanax] 0.5 - 1 mg PO 1999 PRN 10/31/19 12/28/21 History Montelukast [Singulair] 10 mg PO DAILY 10/18/21 12/28/21 History Mirtazapine [Remeron] 30 mg PO HS 12/23/21 12/28/21 History Allergies Allergy/AdvReac Type Severity Reaction Status Date / Time bee pollen Allergy Anaphylaxis Verified 12/28/21 08:14 bee venom protein (honey bee) Allergy Anaphylaxis Verified 12/28/21 08:14 Physical Exam Vitals: Vital Signs Temp Pulse Pulse Resp BP Pulse Ox 12/29/21 07:51 98.3 F 91 17 143/73 96 12/29/21 01:50 98.1 F 83 18 110/71 100 12/28/21 19:27 97.9 F 100 16 110/66 98 12/28/21 18:29 98.1 F 100 18 120/64 92 L 12/28/21 13:34 78 16 95/50 98 12/28/21 13:18 72 16 99/64 98 12/28/21 13:03 60 16 93/53 98 12/28/21 12:48 65 16 92/53 98 12/28/21 12:32 59 L 16 92/51 97 12/28/21 12:18 59 L 16 97/54 96 12/28/21 12:07 61 16 99/57 97 12/28/21 11:52 59 L 16 105/53 96 12/28/21 11:37 70 16 123/58 99 12/28/21 11:22 97.4 F L 84 18 125/73 93 L Intake and Output 12/28/21 12/29/21 12/29/21 22:59 06:59 14:59 Other: Voiding Method Indwelling Catheter Indwelling Catheter # Voids 1
--- NOTE | 2021-12-29 12:53 | P.PN ---
Subjective Progress Note Date: 12/29/21 CHIEF COMPLAINT: Diverticulitis HISTORY OF PRESENT ILLNESS: Patient is postop day #1 status post lower anterior resection. Her pain is controlled. She has epidural in place. I she did have a bowel movement and flatus. She does rate her pain about a 3 out of 10. She did have episode of vomiting yesterday. This has resolved. Her nausea is improving. Afebrile. Labs pending Patient seen and examined with Dr. tse PHYSICAL EXAM: VITAL SIGNS: Reviewed. GENERAL: Well-developed in no acute distress. HEENT: No sclera icterus. Extraocular movements grossly intact. Moist buccal mucosa. Head is atraumatic, normocephalic. ABDOMEN: Soft. Nondistended. Incision sites small amount of blood draining from the inferior aspect of the incision. Otherwise no evidence of infection clean and intact NEUROLOGIC: Alert and oriented. Cranial nerves II through XII grossly intact. ASSESSMENT: 1. Diverticulitis status post lower anterior resection PLAN: -Continue epidural for pain control -Continue clear liquid diet -Continue IV fluids -Continue antiemetics -Encourage patient to ambulate -Encourage patient to use incentive spirometer -GI prophylaxis Pepcid and DVT prophylaxis subcu heparin Physician Property Consultant note has been reviewed by physician. Signing provider agrees with the documented findings, assessment, and plan of care. Objective - Vital Signs Vital signs: Vital Signs Temp 98.3 F 12/29/21 07:51 Pulse 91 12/29/21 07:51 Resp 17 12/29/21 07:51 BP 143/73 12/29/21 07:51 Pulse Ox 96 12/29/21 07:51 FiO2 Intake & Output 12/28/21 12/29/21 12/29/21 18:59 06:59 18:59 Intake Total 2565 600 Output Total 155 300 Balance 2410 300 Weight 59.9 kg Intake: IV 2565 Intake, IV Titration 250 Amount D5-0.45% NaCl with KCl 250 20Meq/l 1,000 ml @ 125 mls/hr IV .Q8H [facility] Rx#: [id number] Oral 350 Output: Urine 55 300 Estimated Blood Loss 100 Other: Voiding Method Indwelling Catheter Indwelling Catheter Indwelling Catheter # Voids 1 # Bowel Movements 0
--- NOTE | 2021-12-29 13:50 | XR ---
EXAMINATION TYPE: XR chest 2V DATE OF EXAM: 12/29/2021 COMPARISON: Chest x-ray 2013 HISTORY: Difficulty in breathing. TECHNIQUE: Frontal and lateral views of the chest are obtained. FINDINGS: There is new left lower lobe increased opacity on 2 views. There is new right basilar opacity more localized anteriorly on lateral view. The cardiac silhouette size is more prominent measuring upper limits of normal with new Mild interstitial edema felt present . Tiny bilateral pleural effusions on lateral view. The osseous structures are intact. Suspect free air below the right hemidiaphragm extending anteriorly. IMPRESSION: New mild interstitial edema and tiny bilateral pleural effusions. Correlate for fluid ov erload state. There is new left lower lobe acute infiltrate and/or atelectasis. There is new right mi ddle lobe acute infiltrate and/or atelectasis. New free air. Talking to patient's nurse, she has had recent bowel surgery felt to account for this. A Document Only message has been documented for Ashwin Wyman MD in the [facility] system on 12/29/2021 1:48 PM, Message ID [id number].
[2021-12-29] MEDS: ROPIVACAINE 400 MG, HYDROMORPHONE (PF) 5 MG in SODIUM CHLORIDE 0.9% 170 ML EPIDURAL PRN (14:25)
[2021-12-29] MEDS: MIRTAZAPINE 15 MG TAB PO SCH (20:33)
[2021-12-29] MEDS: ALPRAZolam 0.5 MG TAB PO PRN (23:34)
[2021-12-30] MEDS: HEPARIN SODIUM,PORCINE/PF 5,000 UNIT/0.5 ML SYRINGE SQ SCH ×3 (00:16→17:18)
--- NOTE | 2021-12-30 07:25 | P.PN ---
Progress Note - Text Date: 12/30/2021 Time: 07:04 The patient is status post, low anterior resection, postoperative day number 2 The patient has no complaints of nausea vomiting or headache. The patient does not complain of any lower extremity numbness or weakness. Patient is awake and alert, but may be exhibiting some mild confusion. The epidural was turned down to 4 mls per hour earlier this morning. VAS 0-10. The epidural will be maintained and adjusted as needed.
[2021-12-30] MEDS: LACTATED RINGERS 1,000 ML IV SCH (07:56)
[2021-12-30] MEDS: MONTELUKAST 10 MG TAB PO SCH (09:27)
[2021-12-30] MEDS: ALVIMOPAN 12 MG CAPSULE PO SCH ×2 (09:27→22:09)
[2021-12-30] MEDS: FAMOTIDINE 20 MG/2 ML VIAL IV SCH ×2 (09:59→22:09)
[2021-12-30 10:47] LABS: HCT 35.4 % (37.2-46.3); HGB 11.2 g/dL (12.0-15.0); MCHC 31.6 g/dL (32.0-37.0); MCV 101.1 fL (80.0-97.0); Mean Platelet Volume 9.7 fL (9.5-12.2); NRBC Per 100 WBC 0 /100 WBCS (0.0-0.0); Platelet Count 194 X 10*3/uL (140-440); RDW 12.3 % (11.5-14.5); WBC 11.25 X 10*3/uL (4.50-10.00)
[2021-12-30 10:51] LABS: African American GFR (CKD) 110.7 (60.0-200.0); Anion Gap 9.2 mmol/L (10.00-18.00); BUN/Creat Ratio 4.24 Ratio (12.00-20.00); Blood Urea Nitrogen 2.7 mg/dL (9.0-27.0); Calcium 8.5 mg/dL (8.7-10.3); Carbon Dioxide 26.4 mmol/L (20.0-27.5); Non-African American GFR(CKD) 95.5 (60.0-200.0); Potassium 4.4 mmol/L (3.5-5.5)
--- NOTE | 2021-12-30 14:02 | P.PN ---
Subjective Progress Note Date: 12/30/21 CHIEF COMPLAINT: Diverticulitis HISTORY OF PRESENT ILLNESS: Patient is postop day #2 status post lower anterior resection. Patient had some confusion during the night. Patient also did not sleep well during the night and has been more fidgety. Her epidural was decreased. She does report having flatus. Denies any nausea or vomiting. She does have some discomfort in her lower back. Afebrile. HR 101 WBC 11.25 Hgb 11.2 platelets 194 sodium 137 potassium 4.4 creatinine 0.6 Patient seen and examined with Dr. tse PHYSICAL EXAM: VITAL SIGNS: Reviewed. GENERAL: Well-developed in no acute distress. HEENT: No sclera icterus. Extraocular movements grossly intact. Moist buccal mucosa. Head is atraumatic, normocephalic. ABDOMEN: Patient more distended today. Incisional dressing clean dry and intact NEUROLOGIC: Alert and oriented. Cranial nerves II through XII grossly intact. ASSESSMENT: 1. Diverticulitis status post lower anterior resection PLAN: -Mylicon gas drops ordered for gas pain -Continue epidural for pain control -Continue clear liquid diet -Continue IV fluids -Continue antiemetics -Encourage patient to ambulate -Encourage patient to use incentive spirometer -GI prophylaxis Pepcid and DVT prophylaxis subcu heparin Physician Paper Machine Tender note has been reviewed by physician. Signing provider agrees with the documented findings, assessment, and plan of care. Objective - Vital Signs Vital signs: Vital Signs Temp 99.2 F 12/30/21 08:00 Pulse 101 H 12/30/21 08:00 Resp 17 12/30/21 08:00 BP 124/59 12/30/21 08:00 Pulse Ox 91 L 12/30/21 08:00 FiO2 Intake & Output 12/29/21 12/30/21 12/30/21 18:59 06:59 18:59 Intake Total 699.9 58.4 Output Total 1450 2800 950 Balance -750.1 -2741.6 -950 Intake: Intake, IV Titration 349.9 58.4 Amount D5-0.45% NaCl with KCl 250 20Meq/l 1,000 ml @ 125 mls/hr IV .Q8H [facility] Rx#: [id number] Ropivacaine 400 mg 99.9 58.4 Hydromorphone (Pf) 5 mg In Sodium Chloride 0.9% 170 ml @ Per Protocol EPIDURAL .Q0M PRN Rx#: [id number] Oral 350 Output: Urine 1450 2800 950 Uretheral (Mcgill) 1500 950 Other: Voiding Method Indwelling Catheter Indwelling Catheter # Bowel Movements 0 - Labs CBC & Chem 7: 12/30/21 06:22 12/30/21 06:22 Labs: Abnormal Lab Results - Last 24 Hours (Table) 12/30/21 12/30/21 Range/Units 06:22 06:22 WBC 11.25 H (4.50-10.00) X 10*3/uL RBC 3.50 L (4.10-5.20) X 10*6/uL Hgb 11.2 L (12.0-15.0) g/dL Hct 35.4 L (37.2-46.3) % MCV 101.1 H (80.0-97.0) fL MCHC 31.6 L (32.0-37.0) g/dL Anion Gap 9.20 L (10.00-18.00) mmol/L BUN 2.7 L (9.0-27.0) mg/dL BUN/Creatinine Ratio 4.24 L (12.00-20.00) Ratio Glucose 119 H (70-110) mg/dL Calcium 8.5 L (8.7-10.3) mg/dL
[2021-12-30] MEDS: D5-0.45% NACL WITH KCL 20MEQ/L 1,000 ML IV SCH ×3 (14:05→22:10)
[2021-12-30] MEDS: SIMETHICONE 40 MG/0.6 ML DROPS 2,000 MG/30 ML BOTTLE PO SCH ×3 (14:13→22:10)
--- NOTE | 2021-12-30 18:18 | P.PN ---
Progress Note - Text Progress Note Date: 12/30/21 - Chief Complaint Abdominal surgery This is a pleasant 61-year-old patient, follows with Dr. Arrieta. Chronic stable medical conditions include osteoarthritis, migraines, hemorrhoids, chronic low back pain. Patient has undergone low anterior resection for diverticulitis. Postprocedure patient on clear liquid diet. Some abdominal pain. No nausea vomiting. No fever no chills. 12/30/2021: Remains an epidural pain. Small loose BM. Pain present. No nausea vomiting. On clear liquid diet. Active Medications Alprazolam (Alprazolam 0.5 Mg Tab) 0.5 mg PO 2000 PRN PRN Reason: sleep Last Admin: 12/29/21 23:34 Dose: 0.5 mg Alvimopan (Alvimopan 12 Mg Capsule) 12 mg PO BID [facility] Stop: 01/04/22 21:01 Last Admin: 12/30/21 09:27 Dose: 12 mg Benzocaine/Menthol (Benzocaine/Menthol Lozeng 1 Each Lozenge) 1 each MUCOUS MEM Q1HR PRN PRN Reason: Sore Throat Famotidine (Famotidine 20 Mg/2 Ml Vial) 20 mg IV BID [facility] Last Admin: 12/30/21 09:59 Dose: 20 mg Heparin Sodium (Porcine) (Heparin Sodium,Porcine/Pf 5,000 Unit/0.5 Ml Syringe) 5,000 unit SQ Q8HR [facility] Last Admin: 12/30/21 17:18 Dose: Not Given Lactated Ringer's (Lactated Ringers) 1,000 mls @ 20 mls/hr IV .Q24H [facility] Last Admin: 12/30/21 07:56 Dose: Not Given Ropivacaine 400 mg/Hydromorphone HCl 5 mg/ Sodium Chloride 250 mls @ 0 mls/hr EPIDURAL .Q0M PRN; Protocol PRN Reason: Pain Control Last Infusion: 12/30/21 00:09 Dose: 4 mls/hr Potassium Chloride/Dextrose/Sod Cl (D5%-1/2ns-Kcl 20 Meq/L Iv Solution) 1,000 mls @ 125 mls/hr IV .Q8H [facility] Last Admin: 12/30/21 14:07 Dose: Not Given Metoclopramide HCl (Metoclopramide 5 Mg/Ml 2 Ml Vial) 10 mg IVP Q6HR PRN PRN Reason: Nausea and Vomiting Last Admin: 12/28/21 21:39 Dose: 10 mg Mirtazapine (Mirtazapine 15 Mg Tab) 30 mg PO [facility] Last Admin: 12/29/21 20:33 Dose: 30 mg Montelukast Sodium (Montelukast 10 Mg Tab) 10 mg PO DAILY [facility] Last Admin: 12/30/21 09:27 Dose: 10 mg Naloxone HCl (Naloxone 0.4 Mg/Ml 1 Ml Vial) 0.2 mg IV Q2M PRN PRN Reason: Opioid Reversal Ondansetron HCl (Ondansetron 4 Mg/2 Ml Vial) 4 mg IVP Q8HR PRN PRN Reason: Nausea And Vomiting Last Admin: 12/28/21 14:44 Dose: 4 mg Simethicone (Simethicone 40 Mg/0.6 Ml Drops 2,000 Mg/30 Ml Bottle) 80 mg PO [facility] Last Admin: 12/30/21 18:14 Dose: Not Given Past medical history to include: Osteoarthritis, migraines, peptic ulcer disease no wheezing, hemorrhoids, cervical cancer, kidney stones, diverticulitis, chronic low back pain, anxiety Social history: 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 . Smoked for about 50 years stopped about 3 days ago. Does drink alcohol on weekends. Family history: Reviewed, noncontributory to presentation Physical examination: VITAL SIGNS: 98.2, 94, 18, 143/34, 94% on 4 L GENERAL: Laying in bed, comfortable, epidural EYES: Pupils equal. Conjunctiva normal. HEENT: External appearance of nose and ears normal, oral cavity grossly normal. NECK: JVD not raised; masses not palpable. HEART: First and second heart sounds are normal; no edema. LUNGS: Respiratory rate normal; clear to auscultation. ABDOMEN: Soft, mild tenderness dressing in place, no guarding rigidity, liver spleen not palpable, no masses palpable. PSYCH: Alert and oriented x3; mood and affect normal. MUSCULOSKELETAL:No Clubbing/cyanosis;muscles-grossly intact, evidence of OA INVESTIGATIONS, reviewed in the clinical context: 12/30/2021: WBC 10.2 hemoglobin 11.2 platelets 194 potassium 4.4 creatinine 0.6 [Labs from 12/24/2021] WBC 7.1 hemoglobin 14.1 platelets 257 potassium 4.3 Assessment and plan: -Low anterior resection, with removal of sigmoid colon for diverticulitis Clear liquid diet. Epidural for pain control -Acute postprocedure blood loss anemia expected from surgery IV Ferrlecit -Leukocytosis likely reactive from surgery. No clinical evidence of infection -COPD in a smoker. Patient has stopped smoking 3 days ago. Has declined a nicotine patch. Feels she'll do fine. Singulair -Chronic insomnia Remeron -Anxiety not otherwise specified Xanax when necessary IV Ferrlecit. Increase activity as tolerated. Diet to be addressed per surgery. As custom patient. Thank you Dr. Vasquez
[2021-12-30] MEDS: SODIUM FERRIC GLUCONAT-SUCROSE 125 MG in SODIUM CHLORIDE 0.9% 100 ML IVPB SCH (18:57)
[2021-12-30] MEDS: ALPRAZolam 0.5 MG TAB PO PRN (22:09)
[2021-12-30] MEDS: MIRTAZAPINE 15 MG TAB PO SCH (22:09)
[2021-12-31] MEDS: HEPARIN SODIUM,PORCINE/PF 5,000 UNIT/0.5 ML SYRINGE SQ SCH ×3 (00:54→15:35)
[2021-12-31] MEDS ORDERED: FUROSEMIDE 10 MG/ML 2 ML VIAL IV ONE (08:40)
[2021-12-31] MEDS: SODIUM FERRIC GLUCONAT-SUCROSE 125 MG in SODIUM CHLORIDE 0.9% 100 ML IVPB SCH (08:49)
[2021-12-31] MEDS: ALVIMOPAN 12 MG CAPSULE PO SCH ×2 (08:49→22:47)
[2021-12-31] MEDS: MONTELUKAST 10 MG TAB PO SCH (08:49)
[2021-12-31] MEDS: FAMOTIDINE 20 MG/2 ML VIAL IV SCH ×2 (08:49→22:48)
[2021-12-31] MEDS: D5-0.45% NACL WITH KCL 20MEQ/L 1,000 ML IV SCH (08:50)
[2021-12-31] MEDS: SIMETHICONE 40 MG/0.6 ML DROPS 2,000 MG/30 ML BOTTLE PO SCH ×4 (08:50→22:58)
[2021-12-31] MEDS: LACTATED RINGERS 1,000 ML IV SCH (08:50)
[2021-12-31] MEDS ORDERED: LORazepam 1 MG TAB PO PRN ×3 (09:06)
[2021-12-31] MEDS ORDERED: LORazepam 0.5 MG TAB PO PRN (09:06)
[2021-12-31] MEDS ORDERED: THIAMINE 100 MG/ML 2 ML VIAL IM STA (09:06)
[2021-12-31] MEDS ORDERED: HYDROcodone/APAP 5-325MG 1 EACH TAB PO PRN (09:09)
[2021-12-31] MEDS ORDERED: HYDROmorphone 1 MG/ML 1 ML SYRINGE IVP PRN (09:09)
--- NOTE | 2021-12-31 10:36 | XR ---
EXAMINATION TYPE: XR chest 2V DATE OF EXAM: 12/31/2021 10:15 AM COMPARISON: Chest radiograph from two days prior. TECHNIQUE: XR chest 2V Frontal and lateral views of the chest. CLINICAL INDICATION:Female, 61 years old with history of shortness of breath; FINDINGS: Lungs/Pleura: Flat streaky atelectasis in the lung bases. There is no evidence of pleural effusion, f ocal consolidation, or pneumothorax. Pulmonary vascularity: Unremarkable. Heart/mediastinum: Cardiomediastinal silhouette is unremarkable. Musculoskeletal: No acute osseous pathology. Other: Free air under the diaphragm not seen on today's exam. IMPRESSION: No acute cardiopulmonary disease/process. Similar atelectasis in the lung bases.
[2021-12-31 11:00] LABS: Basophils # (A) 0.02 X 10*3/uL (0.00-0.10); Basophils % (A) 0.3 %; Eosinophils # (A) 0.15 X 10*3/uL (0.04-0.35); HCT 32.6 % (37.2-46.3); HGB 10.1 g/dL (12.0-15.0); Immature Grans, Automated 0.3 %; Lymphocytes # (A) 1.04 X 10*3/uL (0.90-5.00); Lymphocytes % (A) 13.9 %; MCH 31.2 pg (27.0-32.0); MCV 100.6 fL (80.0-97.0); Mean Platelet Volume 9.7 fL (9.5-12.2); Monocytes # (A) 0.65 X 10*3/uL (0.20-1.00); Monocytes % (A) 8.7 %; NRBC Per 100 WBC 0 /100 WBCS (0.0-0.0); Neutrophils # (A) 5.58 X 10*3/uL (1.80-7.70); Neutrophils % (A) 74.8 %; Platelet Count 193 X 10*3/uL (140-440); RBC 3.24 X 10*6/uL (4.10-5.20); RDW 12.1 % (11.5-14.5); WBC 7.46 X 10*3/uL (4.50-10.00)
[2021-12-31 11:15] LABS: African American GFR (CKD) 112.4 (60.0-200.0); Blood Urea Nitrogen <1.4 mg/dL (9.0-27.0); Calcium 8.7 mg/dL (8.7-10.3); Carbon Dioxide 28.6 mmol/L (20.0-27.5); Chloride 104 mmol/L (96-109); Glucose 111 mg/dL (70-110); Potassium 3.8 mmol/L (3.5-5.5); Sodium 140 mmol/L (135-145)
--- NOTE | 2021-12-31 11:43 | P.PN ---
Subjective Progress Note Date: 12/31/21 CHIEF COMPLAINT: Diverticulitis HISTORY OF PRESENT ILLNESS: Patient is postop day #3 status post lower anterior resection. Patient having confusion during the night. She pulled out her epidural and actually caught her IV line per nursing staff. On this morning she is currently awake and alert and pleasant. She reports her pain is controlled. She is having flatus and loose small bowel movements. Patient is now stating that she drinks a pint of Rum a day. Patient is requiring 4 L of oxygen. Per nursing when she ambulates she desats. She's currently on 4 L satting at 90%. Chest x-ray from 11 to mild interstitial edema and tiny bilateral pleural effusions. Correlate for fluid overload. There is new left lower lobe acute infiltrate and/or atelectasis. There is new right middle lobe acute infiltrate and/or atelectasis. Free air noted likely due to recent bowel surgery. Patient seen and examined with Dr. tse PHYSICAL EXAM: VITAL SIGNS: Reviewed. GENERAL: Well-developed in no acute distress. HEENT: No sclera icterus. Extraocular movements grossly intact. Moist buccal mucosa. Head is atraumatic, normocephalic. ABDOMEN: Patient is less distended. Abdomen soft. Incisional dressing clean dry and intact NEUROLOGIC: Alert and oriented. Cranial nerves II through XII grossly intact. ASSESSMENT: 1. Diverticulitis status post lower anterior resection 2. Daily alcohol use with evidence of EtOH withdrawal 3. Possible fluid overload 4. Atelectasis PLAN: -Check chest x-ray regarding increased oxygen saturation -Lasix 20 g IV push 1 ordered -Hep-Lock IV -Advance diet to full liquids -Alcohol CIWA protocol ordered with Ativan -Multivitamin and thiamine ordered -Surveyor and IV Dilaudid for pain control -Encourage patient to use incentive spirometer -Encourage patient to ambulate -GI prophylaxis Pepcid and DVT prophylaxis subcu heparin Physician Cash Applications Associate note has been reviewed by physician. Signing provider agrees with the documented findings, assessment, and plan of care. Objective - Vital Signs Vital signs: Vital Signs Temp 98.4 F 12/31/21 01:47 Pulse 92 12/31/21 01:47 Resp 18 12/31/21 01:47 BP 136/76 12/31/21 01:47 Pulse Ox 90 L 12/31/21 07:37 FiO2 Intake & Output 12/30/21 12/31/21 12/31/21 18:59 06:59 18:59 Intake Total 1650 Output Total 950 Balance 700 Intake: Intake, IV Titration 900 Amount D5-0.45% NaCl with KCl 900 20Meq/l 1,000 ml @ 125 mls/hr IV .Q8H [facility] Rx#: [id number] Oral 750 Output: Urine 950 Uretheral (Mcgill) 950 Other: Voiding Method Toilet # Voids 5 1 # Bowel Movements 0 - Labs CBC & Chem 7: 12/31/21 06:57 12/31/21 06:57 Labs: Abnormal Lab Results - Last 24 Hours (Table) 12/30/21 12/30/21 Range/Units 06:22 06:22 WBC 11.25 H (4.50-10.00) X 10*3/uL RBC 3.50 L (4.10-5.20) X 10*6/uL Hgb 11.2 L (12.0-15.0) g/dL Hct 35.4 L (37.2-46.3) % MCV 101.1 H (80.0-97.0) fL MCHC 31.6 L (32.0-37.0) g/dL Anion Gap 9.20 L (10.00-18.00) mmol/L BUN 2.7 L (9.0-27.0) mg/dL BUN/Creatinine Ratio 4.24 L (12.00-20.00) Ratio Glucose 119 H (70-110) mg/dL Calcium 8.5 L (8.7-10.3) mg/dL
[2021-12-31] MEDS: MULTIVITAMINS, THERA 1 EACH TAB PO SCH (13:05)
[2021-12-31] MEDS: FOLIC ACID 1 MG TAB PO SCH (13:05)
--- NOTE | 2021-12-31 16:44 | P.PN ---
Progress Note - Text Progress Note Date: 12/31/21 - Chief Complaint Abdominal surgery This is a pleasant 61-year-old patient, follows with Dr. Arrieta. Chronic stable medical conditions include osteoarthritis, migraines, hemorrhoids, chronic low back pain. Patient has undergone low anterior resection for diverticulitis. Postprocedure patient on clear liquid diet. Some abdominal pain. No nausea vomiting. No fever no chills. 12/30/2021: Remains an epidural pain. Small loose BM. Pain present. No nausea vomiting. On clear liquid diet. 12/31/2021: Abdominal pain better. Had a loose BM. Advance to full liquid diet per surgery. Ambulating. No nausea vomiting. Active Medications Hydrocodone Bitart/Acetaminophen (Hydrocodone/Apap 5-325mg 1 Each Tab) 1 each PO Q4HR PRN PRN Reason: Pain Last Admin: 12/31/21 15:42 Dose: 1 each Alprazolam (Alprazolam 0.5 Mg Tab) 0.5 mg PO 2000 PRN PRN Reason: sleep Last Admin: 12/30/21 22:09 Dose: 0.5 mg Alvimopan (Alvimopan 12 Mg Capsule) 12 mg PO BID [facility] Stop: 01/04/22 21:01 Last Admin: 12/31/21 08:49 Dose: 12 mg Benzocaine/Menthol (Benzocaine/Menthol Lozeng 1 Each Lozenge) 1 each MUCOUS MEM Q1HR PRN PRN Reason: Sore Throat Famotidine (Famotidine 20 Mg/2 Ml Vial) 20 mg IV BID [facility] Last Admin: 12/31/21 08:49 Dose: 20 mg Folic Acid (Folic Acid 1 Mg Tab) 1 mg PO DAILY [facility] Last Admin: 12/31/21 13:05 Dose: 1 mg Heparin Sodium (Porcine) (Heparin Sodium,Porcine/Pf 5,000 Unit/0.5 Ml Syringe) 5,000 unit SQ Q8HR [facility] Last Admin: 12/31/21 15:35 Dose: 5,000 unit Hydromorphone HCl (Hydromorphone 1 Mg/Ml 1 Ml Syringe) 1 mg IVP Q3HR PRN PRN Reason: Pain Lactated Ringer's (Lactated Ringers) 1,000 mls @ 20 mls/hr IV .Q24H [facility] Last Admin: 12/31/21 08:50 Dose: Not Given Ropivacaine 400 mg/Hydromorphone HCl 5 mg/ Sodium Chloride 250 mls @ 0 mls/hr EPIDURAL .Q0M PRN; Protocol PRN Reason: Pain Control Last Infusion: 12/30/21 00:09 Dose: 4 mls/hr Lorazepam (Lorazepam 1 Mg Tab) 1 mg PO Q4HR PRN PRN Reason: Ciwa 6 To 7 Lorazepam (Lorazepam 1 Mg Tab) 2 mg PO Q2HR PRN PRN Reason: Ciwa 10 or greater Lorazepam (Lorazepam 0.5 Mg Tab) 0.5 mg PO Q4HR PRN PRN Reason: Ciwa 4 To 5 Lorazepam (Lorazepam 1 Mg Tab) 2 mg PO Q3HR PRN PRN Reason: Ciwa 8 To 9 Metoclopramide HCl (Metoclopramide 5 Mg/Ml 2 Ml Vial) 10 mg IVP Q6HR PRN PRN Reason: Nausea and Vomiting Last Admin: 12/28/21 21:39 Dose: 10 mg Mirtazapine (Mirtazapine 15 Mg Tab) 30 mg PO [facility] Last Admin: 12/30/21 22:09 Dose: 30 mg Montelukast Sodium (Montelukast 10 Mg Tab) 10 mg PO DAILY [facility] Last Admin: 12/31/21 08:49 Dose: 10 mg Multivitamins (Multivitamins, Thera 1 Each Tab) 1 each PO DAILY [facility] Last Admin: 12/31/21 13:05 Dose: 1 each Naloxone HCl (Naloxone 0.4 Mg/Ml 1 Ml Vial) 0.2 mg IV Q2M PRN PRN Reason: Opioid Reversal Ondansetron HCl (Ondansetron 4 Mg/2 Ml Vial) 4 mg IVP Q8HR PRN PRN Reason: Nausea And Vomiting Last Admin: 12/28/21 14:44 Dose: 4 mg Simethicone (Simethicone 40 Mg/0.6 Ml Drops 2,000 Mg/30 Ml Bottle) 80 mg PO [facility] Last Admin: 12/31/21 13:05 Dose: 80 mg Thiamine HCl (Thiamine 100 Mg Tab) 100 mg PO DAILY [facility] Past medical history to include: Osteoarthritis, migraines, peptic ulcer disease no wheezing, hemorrhoids, cervical cancer, kidney stones, diverticulitis, chronic low back pain, anxiety Social history: 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 . Smoked for about 50 years stopped about 3 days ago. Does drink alcohol on weekends. Family history: Reviewed, noncontributory to presentation Physical examination: VITAL SIGNS: 98.2, 88, 16, 1 31 x 66, 93% room air GENERAL: Sitting up in a chair, comfortable, EYES: Pupils equal. Conjunctiva normal. HEENT: External appearance of nose and ears normal, oral cavity grossly normal. NECK: JVD not raised; masses not palpable. HEART: First and second heart sounds are normal; no edema. LUNGS: Respiratory rate normal; clear to auscultation. ABDOMEN: Soft, mild tenderness dressing in place, no guarding rigidity, liver spleen not palpable, no masses palpable. PSYCH: Alert and oriented x3; mood and affect normal. MUSCULOSKELETAL:No Clubbing/cyanosis;muscles-grossly intact, evidence of OA INVESTIGATIONS, reviewed in the clinical context: 12/31/2021: WBC 7.4 hemoglobin 10.1 progression 3.8 creatinine 0.6 12/30/2021: WBC 10.2 hemoglobin 11.2 platelets 194 potassium 4.4 creatinine 0.6 [Labs from 12/24/2021] WBC 7.1 hemoglobin 14.1 platelets 257 potassium 4.3 Assessment and plan: -Low anterior resection, with removal of sigmoid colon for diverticulitis Follow liquid diet. -Acute postprocedure blood loss anemia expected from surgery IV Ferrlecit -Leukocytosis likely reactive from surgery. No clinical evidence of infection: Better -COPD in a smoker. Patient has stopped smoking 3 days ago. Has declined a nicotine patch. Feels she'll do fine. Singulair -Chronic insomnia Remeron -Anxiety not otherwise specified Xanax when necessary IV Ferrlecit. activity as tolerated. Advance to full liquid diet. Thank you Dr. Vasquez
[2021-12-31] MEDS: ALPRAZolam 0.5 MG TAB PO PRN (22:47)
[2021-12-31] MEDS: MIRTAZAPINE 15 MG TAB PO SCH (23:42)
[2022-01-01] MEDS: HEPARIN SODIUM,PORCINE/PF 5,000 UNIT/0.5 ML SYRINGE SQ SCH ×2 (00:32→11:17)
[2022-01-01] MEDS ORDERED: THIAMINE 100 MG TAB PO SCH (09:00)
[2022-01-01] MEDS: FOLIC ACID 1 MG TAB PO SCH (11:17)
[2022-01-01] MEDS: FAMOTIDINE 20 MG/2 ML VIAL IV SCH (11:17)
[2022-01-01] MEDS: SIMETHICONE 40 MG/0.6 ML DROPS 2,000 MG/30 ML BOTTLE PO SCH (11:17)
[2022-01-01] MEDS: LACTATED RINGERS 1,000 ML IV SCH (11:17)
[2022-01-01] MEDS: ALVIMOPAN 12 MG CAPSULE PO SCH (11:17)
[2022-01-01] MEDS: MONTELUKAST 10 MG TAB PO SCH (11:18)
[2022-01-01] MEDS: MULTIVITAMINS, THERA 1 EACH TAB PO SCH (11:18)
--- NOTE | 2022-01-01 12:38 | P.DS ---
Providers Date of admission: 12/28/21 07:55 Expected date of discharge: 01/01/22 Attending physician: Flash Vasquez Consults: 12/28/21 20:49 Consult Physician Routine Consulting Provider: Ashwin Wyman Consult Reason/Comments: medical management Do you want consulting provider notified?: Yes, Notify in am Primary care physician: [facility] Course: Patient was admitted and underwent low anterior resection for diverticulitis 4 days ago. Doing well at this time. She is tolerating her full liquids. Her diet was advanced this morning a regular diet and so far she is tolerating that as well. She would like to go home today. Abdomen is soft with minimal tenderness, no distention, incision is clean and dry. Patient is afebrile. She is having bowel movements at this time. Plane discharged today with outpatient follow-up. Prescription provided. Patient asked to return to the hospital with any complaints of nausea vomiting, pain, fevers. Plan - Discharge Summary Discharge Rx Participant: Yes New Discharge Prescriptions: New HYDROcodone/APAP 5-325MG [[place] 5-325] 1 tab PO Q6HR PRN 3 Days #12 tab PRN Reason: Pain No Action ALPRAZolam [Xanax] 0.5 - 1 mg PO 2000 PRN PRN Reason: sleep Montelukast [Singulair] 10 mg PO DAILY Mirtazapine [Remeron] 30 mg PO HS Discharge Medication List ALPRAZolam [Xanax] 0.5 - 1 mg PO 1999 PRN 10/31/19 [History] Montelukast [Singulair] 10 mg PO DAILY 10/18/21 [History] Mirtazapine [Remeron] 30 mg PO HS 12/23/21 [History] HYDROcodone/APAP 5-325MG [[place] 5-325] 1 tab PO Q6HR PRN 3 Days #12 tab 12/31/21 [Rx] Follow up Appointment(s)/Referral(s): Flash Vasquez MD [STAFF PHYSICIAN] - 1 Week Activity/Diet/Wound Care/Special Instructions: No driving while taking [place] No lifting over 10 pounds Shower daily. No soaking or tub baths for 2 weeks Very light activity until you are reevaluated at your follow up appointment with your surgeon
[2022-01-01 12:50] VITALS: BP 132/84; PULSE 85; RESP 18; TEMP 97.9
--- NOTE | 2022-01-02 08:14 | P.PN ---
Progress Note - Text 12/31/21 640am C1-year-old female status post low anterior resection by Dr. Vasquez. Patient has an epidural catheter is postop day 3, she has a VAS of 3. No sensory or motor deficits.
== END 2022-01-01 14:59 | disposition home or self-care (01) | DRG 330 ==
LOC: 2ORMAIN 07:55 → 4SSUR 14:05
PROVIDERS: ADMIT Surgery; ATTEND Surgery
PROC: 0DBU0ZZ Excision of Omentum, Open Approach (ICD-10-PCS; principal; 2021-12-28 09:40)
PROC: 0DTJ0ZZ Resection of Appendix, Open Approach (ICD-10-PCS; principal; 2021-12-28 09:40)
PROC: 0DTN0ZZ Resection of Sigmoid Colon, Open Approach (ICD-10-PCS; principal; 2021-12-28 09:40)
DX: K57.32 Diverticulitis of large intestine without perforation or abscess without bleeding (principal); F10.939 Alcohol use, unspecified with withdrawal, unspecified; J98.11 Atelectasis; G89.29 Other chronic pain; K64.9 Unspecified hemorrhoids; M06.9 Rheumatoid arthritis, unspecified; M19.90 Unspecified osteoarthritis, unspecified site; J44.9 Chronic obstructive pulmonary disease, unspecified; D50.0 Iron deficiency anemia secondary to blood loss (chronic); D72.829 Elevated white blood cell count, unspecified; E87.70 Fluid overload, unspecified; M54.50 Low back pain, unspecified; F41.9 Anxiety disorder, unspecified; F51.04 Psychophysiologic insomnia; G43.909 Migraine, unspecified, not intractable, without status migrainosus; Z79.899 Other long term (current) drug therapy; Z85.41 Personal history of malignant neoplasm of cervix uteri; Z87.442 Personal history of urinary calculi; Z90.710 Acquired absence of both cervix and uterus; Z87.891 Personal history of nicotine dependence; Z87.11 Personal history of peptic ulcer disease
CPT/HCPCS: 71046; 80048; 85025; 85027; 86850; 86900; 86901; 88307; 94760

== ENCOUNTER 2022-01-02 08:46 | Emergency (ER) | payer BC ==
--- NOTE | 2022-01-02 09:04 | ED ---
General Adult HPI - General Chief complaint: Recheck/Abnormal Lab/Rx Stated complaint: Revisit/here 01/01 Time Seen by Provider: 01/02/22 08:55 Source: patient, RN notes reviewed, old records reviewed Mode of arrival: ambulatory Limitations: no limitations - History of Present Illness Initial comments: This is a 61-year-old female presents emergency Department stating that she was discharged from hospital yesterday. Patient states that the IV site on her left forearm is red and tender to palpation it is also a little bit warm. Patient states she just wanted to be evaluated and see if was anything significant. Patient denies any fever chills per patient denies any progression of the redness or swelling to the upper arm. Patient denies any other symptoms at this time. - Related Data Home Medications Medication Instructions Recorded Confirmed ALPRAZolam [Xanax] 0.5 - 1 mg PO 1999 PRN 10/31/19 12/28/21 Montelukast [Singulair] 10 mg PO DAILY 10/18/21 12/28/21 Mirtazapine [Remeron] 30 mg PO HS 12/23/21 12/28/21 Allergies Allergy/AdvReac Type Severity Reaction Status Date / Time bee pollen Allergy Anaphylaxis Verified 12/28/21 08:14 bee venom protein (honey bee) Allergy Anaphylaxis Verified 12/28/21 08:14 Review of Systems ROS Statement: Those systems with pertinent positive or pertinent negative responses have been documented in the HPI. ROS Other: All systems not noted in ROS Statement are negative. Past Medical History Past Medical History: Cancer, Osteoarthritis (OA), Rheumatoid Arthritis (RA) Additional Past Medical History / Comment(s): Migraines, hx ulcers, hemorrhoids, polyp in esophagus and small intestine on previous EGD, colonoscopy, hx cervical cancer, hx kidney stones, RECTAL BLEEDING, diverticultitis and twisted colon, chronic back pain. History of Any Multi-Drug Resistant Organisms: None Reported Past Surgical History: Cholecystectomy, Hysterectomy, Orthopedic Surgery, Tonsillectomy Additional Past Surgical History / Comment(s): Bilateral foot bunionectomy, tendon replaced in left index finger, carpal tunnel bilateral wrists, medial branch injections for migraines, colonoscopies, EGD, bowel resection. Past Anesthesia/Blood Transfusion Reactions: No Reported Reaction Past Psychological History: Anxiety Smoking Status: Current every day smoker - Past Family History Mother Family Medical History: No Reported History Sister(s) Family Medical History: Cancer General Exam - General Exam Comments Initial Comments: GENERAL Patient is well-developed and well-nourished. Patient is in mild distress. EYES Patient's pupils are equal and round. Extraocular motion is intact SKIN Unremarkable NEURO The patient is alert and oriented 3 PYSCH Patient has normal interpersonal interactions. MUSCULOSKELETAL Patient has some redness and tenderness over the IV site on the left forearm. Limitations: no limitations Course Vital Signs 01/02/22 08:48 Temperature 98.0 F Pulse Rate 80 Respiratory 18 Rate Blood Pressure 147/75 O2 Sat by Pulse 97 Oximetry Medical Decision Making - Medical Decision Making Patient received Toradol emergency department. Disposition Clinical Impression: Superficial thrombophlebitis Disposition: HOME SELF-CARE Instructions (If sedation given, give patient instructions): Superficial Thrombophlebitis (ED) Additional Instructions: Patient should take Motrin every 6 hours when necessary for pain and redness. Patient should use warm compresses. Is patient prescribed a controlled substance at d/c from ED?: No Referrals: Quinten Groves DO [Primary Care Provider] - 1-2 days Time of Disposition: 09:45
[2022-01-02] MEDS ORDERED: KETOROLAC 15 MG/ML 1 ML VIAL IM STA (09:32)
[2022-01-02 10:20] VITALS: BP 142/65; PULSE 82; RESP 16; TEMP 97.9
== END 2022-01-02 10:20 | disposition home or self-care (01) ==
LOC: EC 08:46
DX: I80.01 Phlebitis and thrombophlebitis of superficial vessels of right lower extremity (principal); M19.90 Unspecified osteoarthritis, unspecified site; F41.9 Anxiety disorder, unspecified; F17.200 Nicotine dependence, unspecified, uncomplicated; Z79.899 Other long term (current) drug therapy; Z91.030 Bee allergy status
CPT/HCPCS: 99283; 96372; J1885

== ENCOUNTER → 2023-11-22 | Outpatient (CLI) | payer MEDICARE, BC ==
[2023-11-22 15:16] LABS: Basophils # (A) 0.05 X 10*3/uL (0.00-0.10); Basophils % (A) 0.8 %; Eosinophils # (A) 0.13 X 10*3/uL (0.04-0.35); Eosinophils % (A) 2.1 %; HCT 44.5 % (37.2-46.3); HGB 14.2 g/dL (12.0-15.0); Lymphocytes # (A) 2.05 X 10*3/uL (0.90-5.00); Lymphocytes % (A) 32.7 %; MCH 31.1 pg (27.0-32.0); MCHC 31.9 g/dL (32.0-37.0); MCV 97.4 FL (80.0-97.0); Mean Platelet Volume 9.6 FL (9.5-12.2); Monocytes # (A) 0.49 X 10*3/uL (0.20-1.00); Monocytes % (A) 7.8 %; NRBC Per 100 WBC 0 X 10*3/uL (0.00-0.01); Neutrophils # (A) 3.52 X 10*3/uL (1.80-7.70); Neutrophils % (A) 56.3 %; Platelet Count 269 X 10*3/uL (140-440); RBC 4.57 X 10*6/uL (4.10-5.20); RDW 13.2 % (11.5-14.5); WBC 6.26 X 10*3/uL (4.50-10.00)
== END | disposition home or self-care (01) ==
LOC: LABPAT 08:54
PROVIDERS: ATTEND Surgery
DX: Z01.818 Encounter for other preprocedural examination
CPT/HCPCS: 36415; 85025; 86850; 86900; 86901; 93005

== ENCOUNTER 2023-11-28 05:32 | Day surgery (SDC) | payer BC, MEDICARE ==
[2023-11-22 11:33] VITALS: BMI 21.6
[2023-11-28] MEDS ORDERED: LIDOCAINE 1% (10MG/ML) FOR IV START INTRADERMA PRN (06:13)
[2023-11-28] MEDS: IV FLUID CONTINUATION 1,000 ML IV ONE ×4 (06:31→09:48)
[2023-11-28] MEDS: ONDANSETRON 4 MG/2 ML VIAL IVP ONE (06:50)
[2023-11-28] MEDS: LACTATED RINGERS 1,000 ML IV SCH (06:50)
[2023-11-28] MEDS: DEXAMETHASONE SOD PHOSPHATE 4 MG/ML 1 ML VIAL IV ONE (06:51)
[2023-11-28] MEDS: MIDAZOLAM 2 MG/2 ML VIAL IV PRN (06:56)
[2023-11-28] MEDS ORDERED: fentaNYL (PF) 50 MCG/ML 2 ML AMP IVP PRN (07:00)
[2023-11-28] MEDS: ACETAMINOPHEN TAB 500 MG TAB PO PRN (07:13)
[2023-11-28] MEDS: HEPARIN SODIUM,PORCINE 5,000 UNIT/ML 1 ML VIAL SQ PRN (07:14)
[2023-11-28] MEDS: KETOROLAC 15 MG/ML 1 ML VIAL IVP ONE (07:25)
[2023-11-28] MEDS ORDERED: SODIUM CHLORIDE 0.9% (PF) 10 ML VIAL ONE (07:32)
[2023-11-28] MEDS ORDERED: NEOSTIGMINE 1 MG/ML 10 ML VIAL ONE (07:32)
[2023-11-28] MEDS ORDERED: GLYCOPYRROLATE 0.2 MG/ML 2 ML VIAL ONE (07:32)
[2023-11-28] MEDS ORDERED: KETAMINE HCL IN 0.9 % NACL 50 MG/5 ML SYRINGE ONE (07:32)
[2023-11-28] MEDS ORDERED: HYDROmorphone (PF) 1 MG/ML ONE (07:32)
[2023-11-28] MEDS ORDERED: DEXAMETHASONE SOD PHOSPHATE 4 MG/ML 1 ML VIAL ONE (07:32)
[2023-11-28] MEDS ORDERED: PROPOFOL 10 MG/ML 20 ML VIAL IV ONE (07:32)
[2023-11-28] MEDS ORDERED: SUCCINYLCHOLINE CHLORIDE 200 MG/10 ML VIAL IV ONE (07:32)
[2023-11-28] MEDS ORDERED: fentaNYL (PF) 50 MCG/ML 2 ML AMP ONE (07:32)
[2023-11-28] MEDS ORDERED: ROCURONIUM 10 MG/ML (5 ML VIAL) IV ONE (07:32)
[2023-11-28] MEDS ORDERED: LIDOCAINE 1% INJ 10MG/ML (20 ML MDV) ONE (07:32)
[2023-11-28] MEDS ORDERED: ROPIVACAINE 5 MG/ML 30 ML VIAL ONE (07:32)
[2023-11-28] MEDS ORDERED: PHENYLEPHRINE-0.9% NACL SYG 1,000 MCG/10 ML SYRINGE ONE (07:32)
[2023-11-28] MEDS: LIDOCAINE 1%-EPI 1:100,000 20 ML VIAL SQ ONE ×2 (07:55)
--- NOTE | 2023-11-28 08:01 | P.ANPRN ---
Procedure Note - Anesthesia - Nerve Block Performed Bilateral Erector Spinae Single Time Out Performed: Yes Date of Procedure: 11/28/23 Procedure Start Time: 06:56 Procedure Stop Time: 07:10 Location of Patient: PreOp Indication: Acute Post-Operative Pain, Requested by Surgeon Sedation Type: Sedate with meaningful contact maintained Preparation: Sterile Prep, Sterile Dressing Position: Prone Catheter: None Needle Types: Facet Needle Gauge: 20 Ultrasound used to visualize needle placement: Yes Ultrasound used to observe medication spread: Yes Injectate: Other (see comment) (Ropivacaine 0.25% 30 ml + decadron 2 mg per side) Blood Aspirated: No Pain Paresthesia on Injection Noted: No Resistance on Injection: Normal Image Stored and Saved: Yes Events: Uneventful and Well Tolerated
--- NOTE | 2023-11-28 08:29 | P.OP ---
Date of Procedure: 11/28/23 Preoperative Diagnosis: Incisional hernia Postoperative Diagnosis: Incisional hernia Procedure(s) Performed: Laparoscopic robotic repair of incisional hernia Transversus abdominis plane block Anesthesia: AMRIT Surgeon: Flash Vasquez Estimated Blood Loss (ml): 5 Pathology: none sent Condition: stable Disposition: PACU Description of Procedure: The patient was placed on the operating table in the supine position. He received general anesthesia. His abdomen was prepped and draped usual fashion. Using a 5 mm optical trocar under direct visualization the peritoneal cavity was entered in the left upper quadrant. The abdomen was then insufflated. The laparoscope was placed back into the perineal cavity. Next a 8 mm robotic trocar was placed in the left lower quadrant and a 12 mm robotic trocar was placed in the left lateral position. The original 5 mm trocar was exchanged for a 8 mm robotic trocar. A four-quadrant transversus abdominis plane blocks performed 1% local Xylocaine. The patient's placed in the left side up position. And the patient was docked to the robot. The incisional hernia was visualized. Using hook cautery the peritoneum over the incisional hernia was excised. The hernia measured approximately 7 cm in length. The fascial opening was repaired using 0V LOC suture. Next a piece of 11 cm round ventral light ST mesh was placed into the. Cavity and secured with 2 OV lock suture. The patient was undocked the robot. The needles were retrieved. The fascia of the 12 mm trocar site was closed with 0 Ethibond suture. Skin was closed interrupted 3-0 Monocryl suture. Dermabond dressings was applied. Patient tolerated procedure well and was sent to recovery room stable condition.
[2023-11-28] MEDS: MIDAZOLAM 2 MG/2 ML VIAL IV ONE (09:00)
[2023-11-28] MEDS: HYDROmorphone 0.5 MG/0.5 ML SYRINGE IVP PRN (09:14)
[2023-11-28 09:37] VITALS: TEMP 97.9
[2023-11-28 10:10] VITALS: RESP 16
[2023-11-28 10:49] VITALS: BP 141/51; PULSE 74
== END 2023-11-28 11:26 | disposition home or self-care (01) ==
LOC: OR 05:32
PROVIDERS: ATTEND Surgery
DX: K43.0 Incisional hernia with obstruction, without gangrene
CPT/HCPCS: 49593; 64999; S2900

== ENCOUNTER 2023-12-17 19:17 | Emergency (ER) | payer MEDICARE, BC ==
[2023-12-17 19:28] VITALS: BP 169/63; PULSE 80; RESP 18; TEMP 98.2
--- NOTE | 2023-12-17 19:57 | ED ---
Abdominal Pain HPI - General Chief Complaint: Abdominal Pain Stated Complaint: ABD Pain Time Seen by Provider: 12/17/23 19:56 Source: EMS Mode of arrival: EMS Limitations: no limitations - History of Present Illness Initial Comments: 63-year-old female presenting chief complaint of constipation. She has not had a bowel movement in 6 days. States that she is having some pain and swelling at the rectum. She did have a recent hernia repair with Dr. Tang on 11/27. States that she has been taking ibuprofen since then, is not currently taking any opioids. - Related Data Home Medications Medication Instructions Recorded Confirmed ALPRAZolam [Xanax] 1 mg PO HS PRN 10/31/19 11/28/23 Ibuprofen [Motrin] 800 mg PO TID PRN 11/22/23 11/22/23 Previous Rx's Medication Instructions Recorded Acetaminophen Tab [Tylenol] 650 mg PO Q6H #30 tab 11/28/23 Docusate [Colace] 100 mg PO BID #20 capsule 11/28/23 Ibuprofen [Motrin] 600 mg PO Q6HR PRN #40 tab 11/28/23 oxyCODONE HCL [OxyIR] 5 mg PO Q6H PRN 3 Days #10 tab 11/28/23 Allergies Allergy/AdvReac Type Severity Reaction Status Date / Time bee pollen Allergy Anaphylaxis Verified 12/17/23 19:27 bee venom protein (honey bee) Allergy Anaphylaxis Verified 12/17/23 19:27 Review of Systems ROS Statement: Those systems with pertinent positive or pertinent negative responses have been documented in the HPI. ROS Other: All systems not noted in ROS Statement are negative. Past Medical History Past Medical History: Cancer, Osteoarthritis (OA), Rheumatoid Arthritis (RA) Additional Past Medical History / Comment(s): Migraines, hx ulcers, hemorrhoids, polyp in esophagus and small intestine on previous EGD, colonoscopy, hx cervical cancer, hx kidney stones, RECTAL BLEEDING, diverticultitis and twisted colon, chronic back pain. History of Any Multi-Drug Resistant Organisms: None Reported Past Surgical History: Cholecystectomy, Hysterectomy, Orthopedic Surgery, Tonsillectomy Additional Past Surgical History / Comment(s): Bilateral foot bunionectomy, tendon replaced in left index finger, carpal tunnel bilateral wrists, medial branch injections for migraines, colonoscopies, EGD, bowel resection. Past Anesthesia/Blood Transfusion Reactions: No Reported Reaction Past Psychological History: Anxiety Smoking Status: Former smoker Past Alcohol Use History: None Reported Past Drug Use History: None Reported - Past Family History Mother Family Medical History: No Reported History Sister(s) Family Medical History: Cancer General Exam - General Exam Comments Initial Comments: Visual Physical Exam Vital signs reviewed General: Well-appearing, nontoxic, no acute distress. Head: Normocephalic, atraumatic Eyes: PERRLA, EOMI ENT: Airway patent Chest: Nonlabored breathing Skin: No visual rash, normal skin tone Neuro: Alert and oriented 3 Musculoskeletal: No gross abnormalities Limitations: no limitations Course Vital Signs 12/17/23 19:26 Temperature 98.2 F Pulse Rate 80 Respiratory 18 Rate Blood Pressure 169/63 O2 Sat by Pulse 97 Oximetry Medical Decision Making - Medical Decision Making I performed the quick note portion of this visit, electronically signed Adalid Brown PA-C Patient later eloped from the waiting room Disposition Clinical Impression: Constipation Disposition: LEFT AGAINST MEDICAL ADVICE Condition: Undetermined Referrals: Trinidad Zabala PAC [Primary Care Provider] - 1-2 days
--- NOTE | 2023-12-17 20:21 | XR ---
EXAMINATION TYPE: XR KUB DATE OF EXAM: 12/17/2023 8:11 PM CLINICAL INDICATION: Female, 63 years old with history of constipation; [facility] COMPARISON: 10/18/2021. TECHNIQUE: One radiographic view of the abdomen was obtained. FINDINGS: There is a small stool burden, otherwise, the bowel gas pattern is nonspecific without dila richelle loops of small or large bowel. . Fecal material and gas are demonstrated throughout the colon and rectum. There is no evidence for organomegaly or pneumoperitoneum. The osseous structures are intact. No ab normal calcifications are present. IMPRESSION: Nonspecific bowel gas pattern without radiographic evidence for acute process. [facility], , 12/17/2023 8:19 PM
== END 2023-12-17 21:09 | disposition left against medical advice (07) ==
LOC: EC 19:17
CPT/HCPCS: 74018; 99284

== ENCOUNTER → 2024-03-18 | Outpatient (CLI) | payer MEDICARE ==
[2024-03-18 08:04] LABS: African American GFR (CKD) 86 (>60 ml/min/1.73 sqM); Blood Urea Nitrogen 17 mg/dL (7-17); Non-African American GFR(CKD) 75 (>60 ml/min/1.73 sqM)
--- NOTE | 2024-03-18 09:58 | CT ---
EXAMINATION TYPE: CT abdomen pelvis w con DATE OF EXAM: 03/18/2024 9:36 AM COMPARISON: 11/25/2019 CLINICAL INDICATION: Female, 64 years old with history of K57.32 diverticulitis; Hx diverticulitis, c olon removal TECHNIQUE: CT scan of the abdomen pelvis is performed with IV Contrast, patient injected with 100 mL of Isovue [address] DLP: 414.30 mGycm Automated exposure control for dose reduction was used. FINDINGS: LUNG BASES- minimal scarring or atelectasis at the lung bases. Mild emphysematous changes. Trace of pericardial fluid. LIVER/GB- postcholecystectomy changes. Liver diminished in attenuation relative to the spleen corre late for hepatic steatosis or underlying hepatocellular disease. PANCREAS- No gross abnormality is seen. SPLEEN- No gross abnormality is seen. Accessory splenule incidentally noted. ADRENALS- No gross abnormality is seen. KIDNEYS/BLADDER-no hydronephrosis or nephrolithiasis. Simple appearing left-sided renal cysts Bosniak classification I. a nonobstructing 2 mm left renal calculus. BOWEL- appendix normal. Small hiatal hernia. There is postsurgical changes with primary anastomosis in the sigmoid colon. No evidence of diverticulitis. Moderate retained stool burden correlate for con stipation. LYMPH NODES- No greater than 1cm abdominal or pelvic lymph nodes are appreciated. OSSEOUS STRUCTURES- bilateral spondylolysis L5. Grade 1 anterolisthesis L5-S1. Multilevel degenerati ve disc disease with severe changes L5-S1. Bilateral hip arthropathy.. Degenerative changes of the sp ine. IMPRESSION: 1. Postsurgical changes with no diagnostic evidence of acute diverticulitis. Mild right colonic wall thickening may be related to incomplete distention\peristalsis. If symptomatic consider correlation w ith colonoscopy as clinically warranted. 2. Punctate nonobstructing 2 mm left renal calculus. [facility], , 03/18/2024 9:56 AM
== END | disposition home or self-care (01) ==
LOC: RADCTMAIN 07:14
PROVIDERS: ATTEND Surgery Plastic and Reconstructive Surgery
DX: K57.32 Diverticulitis of large intestine without perforation or abscess without bleeding (principal); N20.0 Calculus of kidney; Z98.890 Other specified postprocedural states
CPT/HCPCS: 82565; 84520; 74177; 36415; Q9967

== ENCOUNTER 2024-08-04 22:19 | Emergency (ER) | payer MEDICARE ==
[2024-08-04] MEDS: SODIUM CHLORIDE 0.9% 1,000 ML IV STA (22:36)
--- NOTE | 2024-08-04 22:42 | ED ---
General Adult HPI - General Chief complaint: Fall Stated complaint: fall Time Seen by Provider: 08/04/24 22:23 Source: patient, EMS Mode of arrival: EMS Limitations: no limitations - History of Present Illness Initial comments: Patient is a previously healthy 64-year-old female presenting today for syncope. Patient states that she has had a stressful week with a daughter who has been ill recently. This evening she felt hungry so walked to the kitchen and began chopping up vegetables. After standing for about 5 minutes she felt like her legs felt like "Jell-O and "melt underneath her". The next thing she remembers is looking at the ceiling. It was estimated that patient's loss of consciousness lasted about 1 minute. She denies tongue biting or urinary incontinence or history of seizures. States this is not happened to her before. She did take 1 Xanax this evening as well as a 5 mg marijuana gummy. She states she does not typically take both of these together. She did hit the back of her head and is not on blood thinners. Denies endorses headache, but denies neck pain. Denies slurred speech, changes in vision, focal numbness or weakness. Denies chest pain or shortness of breath. Denies leg swelling. Denies recent fevers or chills. Denies nausea or vomiting or abdominal pain. Endorses chronic diarrhea. Denies dysuria or urinary frequency. She is a current smoker. No recent travel surgeries or hospitalizations. Denies hemoptysis. Denies history of malignancy. No history of prior PE/DVT. Is not on hormone replacement therapy. - Related Data Home Medications Medication Instructions Recorded Confirmed Ibuprofen [Motrin] 800 mg PO TID PRN 11/22/23 04/10/24 Lactulose 30 ml PO BID 04/08/24 04/10/24 Previous Rx's Medication Instructions Recorded Docusate [Colace] 100 mg PO BID #20 capsule 11/28/23 Allergies Allergy/AdvReac Type Severity Reaction Status Date / Time bee pollen Allergy Anaphylaxis Verified 04/10/24 07:34 bee venom protein (honey bee) Allergy Anaphylaxis Verified 04/10/24 07:34 Review of Systems ROS Statement: Those systems with pertinent positive or pertinent negative responses have been documented in the HPI. ROS Other: All systems not noted in ROS Statement are negative. Past Medical History Past Medical History: Cancer, Osteoarthritis (OA), Rheumatoid Arthritis (RA) Additional Past Medical History / Comment(s): Migraines, hx ulcers, hemorrhoids, polyp in esophagus and small intestine on previous EGD, colonoscopy, hx cervical cancer, hx kidney stones, RECTAL BLEEDING, diverticultitis and twisted colon, chronic back pain. History of Any Multi-Drug Resistant Organisms: None Reported Past Surgical History: Cholecystectomy, Hysterectomy, Orthopedic Surgery, Tonsillectomy Additional Past Surgical History / Comment(s): Bilateral foot bunionectomy, tendon replaced in left index finger, carpal tunnel bilateral wrists, medial branch injections for migraines, colonoscopies, EGD, bowel resection. Past Anesthesia/Blood Transfusion Reactions: No Reported Reaction Past Psychological History: Anxiety Smoking Status: Former smoker Past Drug Use History: None Reported - Past Family History Mother Family Medical History: No Reported History Sister(s) Family Medical History: Cancer General Exam - General Exam Comments Initial Comments: PE: CONSTITUTIONAL: No apparent distress, well appearing SKIN: Warm, dry, no jaundice, hives or petechiae EYES: Pupils are equally round, extraocular movements intact without nystagmus, clear conjunctiva, non-icteric sclera HENT: Normocephalic, palpable hematoma to the left posterior occiput moist mucus membranes, oropharynx clear without exudates NECK: , Full range of motion, normal appearance, There is no midline cervical neck tenderness or step-offs. The patient denies any numbess, tingling, or weakness of the extremities when moving neck through full ROM. The patient is able to range their neck completely without midline cervical pain, numbness, tingling or weakness. PULMONARY: Clear to auscultation without wheezes, rhonchi, or rales, normal excursion, no accessory muscle use and no stridor CARDIOVASCULAR: Regular rate, rhythm, normal S1 and S2. No appreciated murmurs, rubs or gallops. Strong radial pulses with intact distal perfusion. No lower extremity edema GASTROINTESTINAL: Soft, active bowel sounds throughout, non-tender, non- distended, no palpable masses, no rebound or guarding. No hepatosplenomegaly GENITOURINARY: MUSCULOSKELETAL: Extremities have no gross deformity, no edema, redness, or swelling. No calf swelling NEUROLOGIC:_a/o x 3, GCS 15, normal mentation and speech. Moves all extremities x 4 without motor or sensory deficit PSYCHIATRIC:_normal mood and affect, thought process is clear and linear Limitations: no limitations Course Vital Signs 08/04/24 08/04/24 08/05/24 22:22 23:00 02:35 Temperature 97.4 F L 98.2 F Pulse Rate 94 80 72 Respiratory 16 16 18 Rate Blood Pressure 137/83 136/69 125/71 O2 Sat by Pulse 96 95 100 Oximetry EKG Findings - EKG Comments: EKG Findings:: Sinus rhythm, rate 77 bpm intervals within acceptable limits, no arrhythmia, no Brugada pattern or delta waves, no acute ST elevations or depression Medical Decision Making - Medical Decision Making Was pt. sent in by a medical professional or institution (, PA, ESCROW REPRESENTATIVE, urgent care, hospital, or care home...) When possible be specific @ -No Did you speak to anyone other than the patient for history (EMS, parent, family, police, friend...)? What history was obtained from this source @ -Spoke with EMS personnel, state that patient presents for syncopal episode today, patient not on blood thinners, they did note hematoma to the posterior occiput Did you review nursing and triage notes (agree or disagree)? Why? @ -I reviewed nursing and triage notes agree with triage note, no blood thinners, syncopal episode and fall from standing Further history was obtained by patient , he did not witness any seizure- like activity when patient had fallen Were old charts reviewed (outside hosp., previous admission, EMS record, old EKG, old radiological studies, urgent care reports/EKG's, care home records)? Report findings @ -Medical records reviewed Differential Diagnosis (chest pain, altered mental status, abdominal pain women, abdominal pain men, vaginal bleeding, weakness, fever, dyspnea, syncope, headache, dizziness, GI bleed, back pain, seizure, CVA, palpatations, mental health, musculoskeletal)? @ -Differential Syncope: Valvular disease, hypertrophic cardiomyopathy, pulmonary embolism, tamponade, tachycardia, bradycardia, VT, hypovolemia, hemorrhage, dissection, anemia, intracranial hemorrhage, seizure, hypoglycemia, carbon monoxide poisoning, this is not meant to be an all-inclusive list. EKG interpreted by me (3pts min.). @ -As above X-rays interpreted by me (1pt min.). @ -None done CT interpreted by me (1pt min.). Personally viewed CT brain, C-spine I see no evidence of skull fracture or hemorrhage on CT brain, I see no evidence of fracture or malalignment on CT C- spine agrees radiologist interpretation Personally reviewed CT PE study I see no evidence of pulmonary embolism or pneumonia I agree with radiologist interpretation U/S interpreted by me (1pt. min.). @ -None done What testing was considered but not performed or refused? (CT, X-rays, U/S, labs)? Why? @ -None What meds were considered but not given or refused? Why? @ -None Did you discuss the management of the patient with other professionals (professionals i.e. Dr., PA, ESCROW REPRESENTATIVE, lab, RT, psych nurse, criminal justice social worker, pharmacology professor, teacher, traffic officer, rifle case repairer)? Give summary @ -No Was smoking cessation discussed for >3mins.? @ -No Was critical care preformed (if so, how long)? @ -No Were there social determinants of health that impacted care today? How? (Homelessness, low income, unemployed, alcoholism, drug addiction, trans portation, low edu. Level, literacy, decrease access to med. care, group home, rehab)? @ -No Was there de-escalation of care discussed even if they declined (Discuss DNR or withdrawal of care, Hospice)? @ -No What co-morbidities impacted this encounter? (DM, HTN, Smoking, COPD, CAD, Cancer, CVA, ARF, Chemo, Hep., AIDS, mental health diagnosis, sleep apnea, morbid obesity)? @ -None Hospital Course: This is a pleasant 64-year-old female presenting for syncopal episode today.Vital signs stable on arrival, heart rate 94, RR 16, blood pressure 137/83. Patient well-appearing, no acute distress. Has benign physical exam with exception of hematoma to the posterior occiput. I do suspect her syncopal episode today was secondary to concurrent Xanax and marijuana gummy use however will plan for CT brain C-spine given patient's age and head injury. Additionally will obtain cardiac labs, basic CBC, CMP, UA troponin, EKG and D- dimer. Will obtain chest x-ray versus CT PE study pending D-dimer. Patient patient will receive 1 L IV fluids. Labs and imaging reviewed. Grossly within normal limits. Abnormal values not concerning for acute pathology related to presenting complaint. On reassessment patient endorses mild headache. I updated her to findings. We discussed plan for discharge home. Patient and agreeable w/ plan of care. In my medical judgment there is currently no evidence of an immediate life- threatening or surgical condition. Discharge is therefore indicated at this debora e. Discharge treatment instructions, follow up instructions, and appropriate emergency department return precautions were discussed with the patient and/or medical decision maker. Patient and/or medical decision maker expressed understanding of and agreed with the treatment plan, follow up instructions, and emergency department return precaution. All patient's and/or medical decision maker's questions were answered. The patient was instructed to return to the ED for any changes in symptoms, persistent symptoms, inability to obtain proper follow-up or for any further concerns. Patient received verbal and written instructions for this condition. Was patient admitted / discharged? Hospital course, mention meds given and route, prescriptions, significant lab abnormalities, going to OR and other pertinent info. @ -Hospital course Undiagnosed new problem with uncertain prognosis? @ -No Drug Therapy requiring intensive monitoring for toxicity (Heparin, Nitro, Insulin, Cardizem)? @ -No Were any procedures done? @ -No Diagnosis/symptom? Syncopal episode Acute, or Chronic, or Acute on Chronic? @Acute Uncomplicated (without systemic symptoms) or Complicated (systemic symptoms)? @Complicated Side effects of treatment? @ -No Exacerbation, Progression, or Severe Exacerbation? @ -No Poses a threat to life or bodily function? How? (Chest pain, USA, VT, pneumonia, PE, COPD, DKA, ARF, appy, cholecystitis, CVA, Diverticulitis, Homicidal, Suicidal, threat to staff... and all critical care pts) @ -No - Lab Data Result diagrams: 08/04/24 22:33 08/04/24 22:33 Lab Results 08/04/24 08/04/24 08/04/24 Range/Units 22:33 22:33 22:33 WBC 6.46 (4.50-10.00) 10*3/uL RBC 4.18 (4.10-5.20) 10*6/uL Hgb 12.9 (12.0-15.0) g/dL Hct 39.1 (37.2-46.3) % MCV 93.5 (80.0-97.0) fL MCH 30.9 (27.0-32.0) pg MCHC 33.0 (32.0-37.0) g/dL Plt Count 214 (140-440) 10*3/uL MPV 9.3 L (9.5-12.2) fL Immature Gran % (Auto) 0.3 % Neutrophils % 49.6 % Lymphocytes % 37.9 % Monocytes % 8.7 % Eosinophils % 2.9 % Basophils % 0.6 % Immature Gran # 0.02 (0.00-0.04) 10*3/uL Neutrophils # 3.20 (1.80-7.70) 10*3/uL Lymphocytes # 2.45 (0.90-5.00) 10*3/uL Monocytes # 0.56 (0.20-1.00) 10*3/uL Eosinophils # 0.19 (0.04-0.35) 10*3/uL Basophils # 0.04 (0.00-0.10) 10*3/uL PT 10.0 (10.0-12.5) sec INR 0.9 (<1.2) APTT 22.8 (22.0-30.0) sec D-Dimer 4.26 H (<0.60) mg/L FEU Sodium 140 (137-145) mmol/L Potassium 3.7 (3.5-5.1) mmol/L Chloride 106 (98-107) mmol/L Carbon Dioxide 26 (22-30) mmol/L Anion Gap 8 mmol/L BUN 13 (7-17) mg/dL Creatinine 0.77 (0.52-1.04) mg/dL Est GFR (CKD-EPI)AfAm >90 (>60 ml/min/1.73 sqM) Est GFR (CKD-EPI)NonAf 81 (>60 ml/min/1.73 sqM) Glucose 91 (74-99) mg/dL Calcium 9.6 (8.4-10.2) mg/dL Magnesium 2.0 (1.6-2.3) mg/dL Total Bilirubin 0.4 (0.2-1.3) mg/dL AST 26 (14-36) U/L ALT 17 (4-34) U/L Alkaline Phosphatase 84 (38-126) U/L Troponin I (0.000-0.034) ng/mL Total Protein 6.7 (6.3-8.2) g/dL Albumin 4.2 (3.5-5.0) g/dL 08/04/24 Range/Units 22:33 WBC (4.50-10.00) 10*3/uL RBC (4.10-5.20) 10*6/uL Hgb (12.0-15.0) g/dL Hct (37.2-46.3) % MCV (80.0-97.0) fL MCH (27.0-32.0) pg MCHC (32.0-37.0) g/dL Plt Count (140-440) 10*3/uL MPV (9.5-12.2) fL Immature Gran % (Auto) % Neutrophils % % Lymphocytes % % Monocytes % % Eosinophils % % Basophils % % Immature Gran # (0.00-0.04) 10*3/uL Neutrophils # (1.80-7.70) 10*3/uL Lymphocytes # (0.90-5.00) 10*3/uL Monocytes # (0.20-1.00) 10*3/uL Eosinophils # (0.04-0.35) 10*3/uL Basophils # (0.00-0.10) 10*3/uL PT (10.0-12.5) sec INR (<1.2) APTT (22.0-30.0) sec D-Dimer (<0.60) mg/L FEU Sodium (137-145) mmol/L Potassium (3.5-5.1) mmol/L Chloride (98-107) mmol/L Carbon Dioxide (22-30) mmol/L Anion Gap mmol/L BUN (7-17) mg/dL Creatinine (0.52-1.04) mg/dL Est GFR (CKD-EPI)AfAm (>60 ml/min/1.73 sqM) Est GFR (CKD-EPI)NonAf (>60 ml/min/1.73 sqM) Glucose (74-99) mg/dL Calcium (8.4-10.2) mg/dL Magnesium (1.6-2.3) mg/dL Total Bilirubin (0.2-1.3) mg/dL AST (14-36) U/L ALT (4-34) U/L Alkaline Phosphatase (38-126) U/L Troponin I <0.012 (0.000-0.034) ng/mL Total Protein (6.3-8.2) g/dL Albumin (3.5-5.0) g/dL Disposition Clinical Impression: Syncope Disposition: HOME SELF-CARE Condition: Good Instructions (If sedation given, give patient instructions): Syncope (ED) Additional Instructions: Every disease is a spectrum and a small chance still exists that a serious condition could develop, for this reason, please monitor yourself closely for new, changing or worsening symptoms, shortness of breath, further episodes of l osing consciousness, chest pain, fever, severe headache, changes in vision, slurred speech, nausea and vomiting, inability to tolerate/keep down fluids or your medications, inability to follow up with outpatient providers as instructed and should you experience these symptoms or should you have any further concerns for your wellbeing please return to the ED or call 911 immediately. Please plenty fluids and get plenty of rest. [facility] law states that you are unable to drive or operate heavy machinery for 6 months after seizure or syncopal event. Please follow-up with your PCP for clearance. This information is being provided to you in addition to your ER discharge instructions. Today you were evaluated for a concussion. A concussion is a blow or jolt to your head that can disrupt the normal function of the brain. A concussion is not usually life threatening, but the effect of a concussion can be serious. Loss of consciousness only occurs in less than 10% of all concussions. CT scans of the brain are almost always normal. The injuries from concussion are hard to picture because there isn't anything to see. The damage to the brain is microscopic. Concussion is diagnosed, for the most part based on the history of the injury and the symptoms. Signs and symptoms of concussion Headache, nausea and/or vomiting, problems with balance and/or walking, dizziness, vision changes (double vision, fuzzy, blurry), sensitivity to light and noise, feeling sluggish or slowed down/tired, sleep disturbances (sleeping too much or not enough), changes in behavior or personality, feeling "foggy" mentally, slow to respond to questions, problems with concentration and/or memery (amnesia), appears dazed, repeats same questions Caring for Your Concussion at Home The most important thing for you to do is stop all activity, that could lead to further head injury. THE BRAIN NEEDS REST. Manage your pain as per your doctor's orders (avoid Motrin, Aleve and Aspirin because they can cause bleeding to become worse). You may put ice on swollen areas and keep wounds clean. Provide fluids and a light diet until you feel better. Monitor yourself for any of the symptoms mentioned above when at rest and when active. If you shows any of these symptoms then you have not recovered from the concussion and cannot return to normal activity Returning to Normal Activity Because there are many differences of opinion in the criteria used to establish when you can return to normal activities, we recommend that you consult your health care provider and let them make the final determination. If you have symptoms that continue longer than one week you need to be re-evaluated by your health care provider. You may need a referral to have neurocognitive (this is a special evaluation that evaluates learning, memory and coordination) testing done by a neuropsychologist. When it is important to immediately return to the ER If, after you go home, you develop a severe headache, vomiting, severe drowsiness, the inability to wake up or seizures. Return to the ER immediately as these are signs of increased pressure within the brain. PLEASE call your primary care physician as soon as possible to arrange / discuss plan for followup appointment. Appointment in the next 1-3 days is strongly encouraged if possible. PLEASE let us know here before you leave if there is anything further we can do to be of any assistance. Take care and feel Better! Is patient prescribed a controlled substance at d/c from ED?: No Referrals: Quinten Groves, DO [Primary Care Provider] - 1-2 days
[2024-08-04 22:44] LABS: Basophils # (A) 0.04 10*3/uL (0.00-0.10); Basophils % (A) 0.6 %; Eosinophils # (A) 0.19 10*3/uL (0.04-0.35); Eosinophils % (A) 2.9 %; HCT 39.1 % (37.2-46.3); HGB 12.9 g/dL (12.0-15.0); Lymphocytes # (A) 2.45 10*3/uL (0.90-5.00); Lymphocytes % (A) 37.9 %; MCH 30.9 pg (27.0-32.0); MCV 93.5 fL (80.0-97.0); Mean Platelet Volume 9.3 fL (9.5-12.2); Monocytes # (A) 0.56 10*3/uL (0.20-1.00); Monocytes % (A) 8.7 %; Neutrophils % (A) 49.6 %; Platelet Count 214 10*3/uL (140-440); RBC 4.18 10*6/uL (4.10-5.20); RDW 12.8 % (11.5-14.5); WBC 6.46 10*3/uL (4.50-10.00)
--- NOTE | 2024-08-04 22:58 | CT ---
EXAMINATION TYPE: CT brain yolandeine wo con DATE OF EXAM: 08/04/2024 COMPARISON: NONE CLINICAL INDICATION: Female, 64 years old with history of syncope, hit back of head, Syncope, fall fr om standing position, positive LOC, does not take blood thinners., Neck pain TECHNIQUE: CT scan of the head and cervical spine are performed without contrast. CT DLP: 1307.7 mGycm. Automated Exposure Control for Dose Reduction was Utilized. FINDINGS: There is no acute intracranial hemorrhage, mass effect, or midline shift identified. The ventricles and sulci are within normal limits in size. Adame-white matter differentiation is preserve d. The globes are intact and the visualized sinuses are clear. The calvarium is intact. Cervical spine is visualized in its entirety from C1 through upper thoracic levels and demonstrates g rade 1 retrolisthesis C3 on C4, C4-C5, C5 and C6 without evidence of acute fracture or dislocation. O ld Giovanni pipe covering molder-type fracture of posterior aspect posterior spinous process at C7 level is noted. Pr evertebral soft tissue appears within normal limits. The C1-C2 articulation is unremarkable. Verteb ral body heights are maintained. Moderate disc space narrowing C3-C4 through C5-C6 level identified. Thyroid gland is normal in size. Lung apices show emphysematous change without pneumothorax. IMPRESSION: 1. There is no acute fracture or dislocation evident in the cervical spine. 2. No acute intracranial hemorrhage or midline shift is seen. [facility], , 08/04/2024 10:55 PM
[2024-08-04 23:01] LABS: INR 0.9 (<1.2); Partial Thromboplastin Time 22.8 sec (22.0-30.0)
[2024-08-04 23:08] LABS: ALT 17 U/L (4-34); AST 26 U/L (14-36); African American GFR (CKD) >90 (>60 ml/min/1.73 sqM); Albumin 4.2 g/dL (3.5-5.0); Alkaline Phosphatase 84 U/L (38-126); Anion Gap 8 mmol/L; Blood Urea Nitrogen 13 mg/dL (7-17); Calcium 9.6 mg/dL (8.4-10.2); Carbon Dioxide 26 mmol/L (22-30); Chloride 106 mmol/L (98-107); Glucose 91 mg/dL (74-99); Non-African American GFR(CKD) 81 (>60 ml/min/1.73 sqM); Potassium 3.7 mmol/L (3.5-5.1); Sodium 140 mmol/L (137-145); Total Bilirubin 0.4 mg/dL (0.2-1.3); Total Protein 6.7 g/dL (6.3-8.2)
--- NOTE | 2024-08-05 02:09 | CT ---
EXAM: CT Angiography Chest With Intravenous Contrast CLINICAL HISTORY: ITS.REASON CT Reason: syncope, dimer 4 TECHNIQUE: Axial computed tomographic angiography images of the chest with intravenous contrast. CTDI is 17.5 mGy and DLP is 268.4 mGy-cm. This CT exam was performed using one or more of the following dose reduction techniques: automated exposure control, adjustment of the mA and/or kV according to patient size, and/or use of iterative reconstruction technique. MIP reconstructed images were created and reviewed. COMPARISON: No relevant prior studies available. FINDINGS: LUNGS: No focal consolidation, pleural effusion, or pneumothorax. Mild centrilobular emphysema. HEART: Within normal limits. VASCULATURE: No acute pulmonary embolism. THYROID: Within normal limits. MEDIASTINUM + LYMPH NODES: Within normal limits. SUPERIOR ABDOMEN: Within normal limits. MUSCULOSKELETAL: Degenerative changes of the spine. IMPRESSION: No acute pulmonary embolism.
[2024-08-05 02:37] VITALS: BP 125/71; PULSE 72; RESP 18; TEMP 98.2
== END 2024-08-05 02:39 | disposition home or self-care (01) ==
LOC: EC 22:19
DX: R55 Syncope and collapse (principal); Z87.891 Personal history of nicotine dependence; Z91.030 Bee allergy status
CPT/HCPCS: 36415; 93005; 85379; 80053; 83735; 84484; 85025; 85610; 85730; 72125; 70450; 71275; 99285; 96360; Q9967